=== PATIENT | male | born 1950 | race Caucasian/White ===

== ENCOUNTER 2024-04-17 14:29 | Observation (INO) ==
--- NOTE | 2024-04-17 14:54 | Emergency Department Note ---
History of Present Illness General Chief complaint: TIA Symptoms Stated complaint: LT ARM NUMBNESS Time Seen by Provider: 04/17/24 14:36 Source: patient, RN notes reviewed and old records reviewed (Old medical records were attempted to be reviewed but there are no old records at this hospital. Nurse's notes were reviewed and I agree with.) Mode of arrival: ambulatory Limitations: no limitations History of Present Illness This patient is 73-year-old healthy male who comes in after having episode where his left arm got weak and floppy as he describes that he could not fist he said this happened about an hour prior to arrival and lasted 10 or 15 minutes. He feels fine now during this episode he had no other symptoms no weakness in the face or legs no change in vision no difficulty speaking or swallowing. He also has an episode on Thursday at 3:00 in the morning where his left hand went numb and lasted about 10 minutes he recovered and has been fine until today. He is asymptomatic at present. Denies any fall or trauma. No neck pain or stiffness no fall or trauma no headache or head injury. Denies change in vision . no chest pain , shortness of breath or palpitations .he is on no blood thinners and takes cholesterol meds but no other regular meds. Denies abdominal pain. No back pain. Home Medications Medication Instructions Recorded Confirmed Type atorvastatin 20 mg tablet 20 mg PO DAILY 04/17/24 04/17/24 History Allergies Allergy/AdvReac Type Severity Reaction Status Date / Time [id number] Allergy Unknown Uncoded 01/19/08 07:55 Past Med/Surg History Problem List (Updated 04/17/24 @ 18:03 by Lawrence Archibald MD) Hypercholesterolemia (Acute) Brain TIA (Acute) Left arm numbness (Acute) Stroke (Acute) Social History Smoking Status: Former smoker Preferred Language: Persian Feels Safe at Home: Yes Immunizations: Past medical historydenies hypertension denies diabetes he is on no blood thinners. Has hypercholesteremia but no other medical problems . no history of stroke or vascular disease Social history lives locally with his . Does not smoke Review of Systems A total of 10 systems reviewed and were otherwise negative Physical Exam Vital Signs Vital Signs - 24 hr 04/17/24 14:31 04/17/24 14:46 04/17/24 14:48 Temperature 36.6 C Temperature Source Temporal Artery Scan Pulse Rate 55 L 50 L Pulse Rate from SpO2 Sensor 51 L Pulse Rhythm Regular Pulse Strength Normal Respiratory Rate 20 20 Respiratory Effort / Characteristics Non-Labored Spontaneous Respiratory Depth Normal Respiratory Pattern Regular Blood Pressure 170/80 H 166/90 H Blood Pressure Mean 110 134 Blood Pressure Position Sitting Pulse Oximetry 97 98 Oxygen Delivery Method Room Air Room Air Sepsis Recent Fever Within 48 Hours No Sepsis New/Unexplained Change in Mental Status No Sepsis Action Taken by Nursing No Action Required 04/17/24 14:54 04/17/24 15:00 04/17/24 15:31 Temperature Temperature Source Pulse Rate 49 L 57 L Pulse Rate from SpO2 Sensor 49 L Pulse Rhythm Pulse Strength Respiratory Rate 16 20 Respiratory Effort / Characteristics Respiratory Depth Respiratory Pattern Blood Pressure 117/79 163/103 H Blood Pressure Mean 90 121 Blood Pressure Position Pulse Oximetry 96 Oxygen Delivery Method Room Air Sepsis Recent Fever Within 48 Hours Sepsis New/Unexplained Change in Mental Status Sepsis Action Taken by Nursing 04/17/24 16:00 04/17/24 16:11 04/17/24 16:30 Temperature Temperature Source Pulse Rate 50 L 47 L 52 L Pulse Rate from SpO2 Sensor Pulse Rhythm Pulse Strength Respiratory Rate 16 16 Respiratory Effort / Characteristics Respiratory Depth Respiratory Pattern Blood Pressure 159/82 H 156/91 H Blood Pressure Mean 110 127 Blood Pressure Position Pulse Oximetry 97 100 Oxygen Delivery Method Sepsis Recent Fever Within 48 Hours Sepsis New/Unexplained Change in Mental Status Sepsis Action Taken by Nursing 04/17/24 17:01 Temperature Temperature Source Pulse Rate Pulse Rate from SpO2 Sensor 60 Pulse Rhythm Pulse Strength Respiratory Rate 20 Respiratory Effort / Characteristics Respiratory Depth Respiratory Pattern Blood Pressure 167/109 H Blood Pressure Mean 123 Blood Pressure Position Pulse Oximetry 99 Oxygen Delivery Method Sepsis Recent Fever Within 48 Hours Sepsis New/Unexplained Change in Mental Status Sepsis Action Taken by Nursing General: Well developed well nourished older male who appears not ill and in no acute distress, breathing comfortably on room air. Normal speech. Answers all questions appropriately. Alert and orient x 3. HEENT: Normal cephalic atraumatic. Pupils are equal round and reactive to light. Extraocular movements are intact. Oropharynx is pink with moist mucous membranes. No swelling of the mouth lips or tongue. Neck: Supple with a midline trachea. No meningeal signs or stiffness, no JVD or bruits. No Stridor. Chest: Clear to auscultation bilaterally. No wheezes or rhonchi. No increased work of breathing. Heart: Regular rate and rhythm without murmurs or gallops. Abdomen: Soft nontender, nondistended without rebound guarding or rigidity. Extremities: No cyanosis clubbing or edema. No calf tenderness or assymetry Spine/Back. Non tender to palpation. No CVA tenderness Skin: Good turgor without rashes. Neurologic exam: Cranial nerves two through 12 are intact. Motor and sensation are intact and symmetrical throughout. Good receiving and processing supervisor strength in the left hand. No pronator drift. Finger-nose is intact. Course Administered Medications Lorazepam (Lorazepam 2 Mg/1 Ml Vial) 1 mg IV NOW PRN PRN Reason: prior to MRI Stop: 05/17/24 16:35 Last Admin: 04/17/24 17:05 Dose: 1 mg Documented By: SLD Discontinued Medications Aspirin (Aspirin 81 Mg Chew) 324 mg PO NOW STA Stop: 04/17/24 16:16 Last Admin: 04/17/24 16:27 Dose: 324 mg Documented By: MMN Ioversol (Optiray 320 125ml) 117 ml IV ONCE ONE Stop: 04/17/24 15:15 Last Admin: 04/17/24 15:14 Dose: 117 ml Documented By: EDK Medical Decision Making Differential Diagnosis TIA, CVA, intracranial process, electrolyte or metabolic abnormality, infection Medical Records Attestation: I reviewed the patient's medical records. Home Medications Current Medication List: was personally reviewed by me Laboratory Data Attestation: I reviewed the patient's lab results. 04/17/24 14:43 04/17/24 14:43 Lab Results 04/17/24 04/17/24 04/17/24 Range/Units 14:41 14:43 14:50 WBC 9.48 (4.8-10.8) K/ul RBC 5.26 (4.70-6.10) M/uL Hgb 15.5 (14.0-18.0) g/dl POC Hgb 16.3 (14.0-18.0) g/dl Hct 44.8 (42.0-52.0) % POC Hct 48 (42-52) % MCV 85.2 (80.0-100.0) fL MCH 29.5 (25.0-34.0) pg MCHC 34.6 (32.0-36.0) g/dL RDW Std Deviation 42.5 (36.4-46.3) fL RDW Coeff of Car 13.5 (11.5-14.5) % Plt Count 251 (130-400) K/uL MPV 11.0 (9.4-12.4) fL Immature Gran % (Auto) 0.3 % Neut % (Auto) 65.6 % Lymph % (Auto) 23.3 % [place] % (Auto) 8.4 % Eos % (Auto) 1.3 % Baso % (Auto) 1.1 % Neut # (Auto) 6.22 (1.40-6.50) K/uL Lymph # (Auto) 2.21 (1.20-3.40) K/uL [place] # (Auto) 0.80 H (0.11-0.59) K/uL Eos # (Auto) 0.12 (0.00-0.50) K/uL Baso # (Auto) 0.10 (0.00-0.20) K/uL Immature Gran # (Auto) 0.03 (0.01-0.20) K/uL PT 11.0 (9.0-12.0) Seconds INR 1.0 (0.9-1.1) APTT 27 (21-31) Seconds PTT Ratio 1.0 POC Sodium 141 (135-144) mmol/L Sodium 138 (136-145) mmol/L POC Potassium 3.5 (3.3-5.0) mmol/L Potassium 3.5 (3.5-5.1) mmol/L POC Chloride 102 (101-112) mmol/L Chloride 103 (98-107) mmol/L Carbon Dioxide 27 (21-32) mmol/L POC Total CO2 24 (24-31) mmol/L Anion Gap 8 (3-11) POC Anion Gap 20.0 (16-25) mmol/L POC BUN 19 H (7-18) mg/dl BUN 18 (6-23) mg/dl Creatinine 1.07 (0.6-1.4) mg/dl POC Creatinine 1.1 (0.6-1.3) mg/dl Est Cr Clr Drug Dosing 63.3 ml/min eGFR 74.19 BUN/Creatinine Ratio 16.8 (10-20) Glucose 104 H (70-99(Fasting)) mg/dl POC Glucose 98 (70-99) mg/dl POC Glucose (other) 107 H (70-99) mg/dl Calcium 9.9 (8.6-10.3) mg/dl POC Ioniz Calcium [place] 1.23 (1.12-1.32) mmol/l Magnesium 2.0 (1.7-2.4) mg/dl Total Bilirubin 0.8 (0.2-1.0) mg/dl AST 19 (13-39) U/L ALT 25 (7-52) U/L Alkaline Phosphatase 54 (34-104) U/L Troponin I High Sens 3.5 (0-20) pg/ml Total Protein 7.8 (6.0-8.3) gm/dl Albumin 5.1 H (3.4-5.0) gm/dl Globulin 2.7 (2.5-4.0) gm/dl Albumin/Globulin Ratio 1.9 (0.9-2) Imaging Data Attestation: I personally reviewed and interpreted this imaging study as follows: My Impression: Head CTno acute hemorrhage or mass effect seen Radiologist's Impression: Head CT 04/17/24 14:49 CT OF THE HEAD WITHOUT CONTRAST CLINICAL HISTORY: neuro deficit, acute stroke suspected. Sudden onset left arm weakness. COMPARISON STUDY: No previous studies for comparison. TECHNIQUE: Helical axial images of the head were obtained without IV contrast. Automated exposure control was utilized for the study. A dose lowering technique was utilized adhering to the principles of ALARA. FINDINGS: No acute intracranial hemorrhage, midline shift or mass effect is present. The ventricular system is unremarkable. The basal cisterns are patent. No extra-axial collections are present. There are no findings to suggest acute dural sinus thrombosis or acute territorial infarct. No significant calvarial abnormalities are present. Visualized portions of the sinuses and mastoid air cells are clear. IMPRESSION: No acute intracranial findings. ACT 112: Negative or not required by law. Electronically signed by: Khang Regan M.D. 04/17/2024 3:33 PM Head CTA 04/17/24 14:49 CTA ANGIOGRAPHY OF THE HEAD CLINICAL HISTORY: neuro deficit, acute stroke suspected. Left arm weakness. COMPARISON STUDY: No previous studies for comparison. TECHNIQUE: Helical axial images of the head were obtained following uneventful intravenous administration of 117 cc of Optiray. Sagittal and coronal reconstructions were viewed as well as maximal intensity projections on an independent 3-D workstation. Automated exposure control was utilized for the study. A dose lowering technique was utilized adhering to the principles of ALARA. FINDINGS: No acute intracranial hemorrhage, midline shift or mass effect is present. Brain volume is normal. Ventricular system is normal. Basal cisterns are patent. The bilateral M1, M2, A1 and A2 segments are patent. No large vessel occlusion is present. Posterior circulation is intact. There is persistence of the left posterior cerebral artery and a large right posterior communicating artery. Basilar artery is patent. There is no intracranial aneurysm or dissection. IMPRESSION: No large vessel occlusion. No intracranial aneurysm. ACT 112: Negative or not required by law. Electronically signed by: Khang Regan M.D. 04/17/2024 3:45 PM Neck CTA 04/17/24 14:49 CT ANGIOGRAPHY OF THE NECK WITH CONTRAST CLINICAL HISTORY: neuro deficit, acute stroke suspected COMPARISON STUDY: MRI of the cervical spine December 27, 2007. Technique: CT angiography of the carotid and vertebral arteries was obtained using Optiray and 3D reconstruction on an independent workstation. NASCET criteria was utilized. Automated exposure control was utilized for the study. A dose lowering technique was utilized adhering to the principles of ALARA. CT DOSE: 896.18 mGy.cm Findings: No cervical lymphadenopathy is identified. There are no cervical spine fractures. No consolidation is identified within visual portions of the lung apices. The bilateral common carotid arteries are patent. There is calcified and noncalcified plaque within the proximal bilateral internal carotid arteries with resultant stenosis. The proximal right internal carotid artery measures 1.7 mm in caliber. The distal right internal carotid artery measures 5.4 mm in caliber. The proximal left internal carotid artery measures 2 mm in caliber. The more distal left cervical internal carotid artery measures 5.6 mm. [Artery is dominant and patent. Right vertebral artery is somewhat diminutive, likely on a congenital basis. No aneurysm or dissection within the neck. IMPRESSION: 1. Noncalcified and calcified atherosclerotic plaque within the proximal bilateral internal carotid arteries which results in approximate 70% stenosis of the proximal bilateral internal carotid arteries. 2. Dominant, patent left vertebral artery. Somewhat diminutive right vertebral artery, likely on a congenital basis. ACT 112: Negative or not required by law. Electronically signed by: Khang Regan M.D. 04/17/2024 3:41 PM Brain MRI 04/17/24 16:36 MRI OF THE BRAIN WITHOUT CONTRAST CLINICAL HISTORY: Left upper extremity weakness and numbness. Evaluate for stroke. COMPARISON STUDY: Head CT and CTA of the head performed earlier today. TECHNIQUE: Utilizing a 1.5 Dolores magnet and dedicated coil, multiplanar, multiecho imaging of the brain was performed without IV contrast. FINDINGS: There are a few small foci of restricted diffusion within the posterior right frontal lobe and anterior right parietal lobe. The foci of restricted diffusion measure up to 6 mm. Mild associated T2 hyperintensity is noted. The T2 hyperintense foci measure up to 1.3 cm. There is no mass effect or evidence for hemorrhagic conversion. In addition, there is a small T2 hyperintense focus within the right occipital lobe on coronal FLAIR image . This is mildly hyperintense on the diffusion-weighted sequence. This may be slightly hypointense on the ADC map Ventricular system is normal. Basal cisterns are patent. There are no extra-axial collections. Flow-voids for the major intracranial vessels are present. No intracranial masses are identified on this unenhanced exam. IMPRESSION: 1. A few small infarcts within the posterior right frontal and anterior right parietal lobes which are likely acute. Mild associated T2 hyperintensity. No mass effect or evidence for hemorrhagic conversion. 2. Small T2 hyperintense focus with mild restricted diffusion within the right occipital lobe. This favors an additional acute to subacute infarct. 3. No intracranial hemorrhage. No mass effect. ACT 112: Negative or not required by law. Electronically signed by: Khang Regan M.D. 04/17/2024 5:48 PM ECG Data Attestation: I personally reviewed and interpreted this ECG as follows: Indication: + weakness Rate (beats per minute): 47 Rhythm: + sinus bradycardia ECG Intervals/blocks: + Normal QRS, + Normal QT and + Normal CT ECG [place]: + Normal ECG ST segments: + Normal ST segments ECG Findings: + PACs and + PVCs Comparison ECG Date: no prior available MDM Narrative This patient comes in after having weakness of his left arm it is now 100% resolved and he is asymptomatic I am concerned that he had symptoms in his arm earlier in the week as well. I am concerned about stuttering TIAs or neurologic process. At this point with the symptoms resolved he does not appear to have had a stroke. I did do a full stroke workup on him his blood sugar was checked was 108 and therefore not the culprit. IV access established EKG was obtained and he was placed on a quality assurance monitor chassis. His EKG shows no ischemic changes or ectopy. His blood work was unremarkable he has remained stable. CAT scan of the head and CT angiography of the head were negative. CT angiography neck however showed 70% carotid blockage bilaterally I am concerned with his recurrent symptoms that this may be the culprit for his TIA symptoms. He was given aspirin 324 mg chewable and will likely need further antiplatelet/anticoagulation I discussed the case at length with Dr. Huang who is on-call for [email or web address]. She is also ordered an MRI and started him on Plavix. MRI does show that he has had some strokes. the patient is going to be admitted for further treatment and workup. Continuous cardiac monitoring call orders placed in EMR for continuous cardiac monitoring: Upon my evaluation patient noted to be sinus bradycardia with a rate of 55 Impression & Plan Stroke, Left arm numbness, Brain TIA, Hypercholesterolemia Discharge Plan Visit Data Chief Complaint: TIA Symptoms Stated Complaint: LT ARM NUMBNESS ED Provider: Lawrence Archibald Discharge Problem: Stroke, Left arm numbness, Brain TIA, Hypercholesterolemia Discharge Instructions Interventions: ED Discharge Assessment Last Done: 04/17/24 17:26 Forms Stand Alone Forms: My [employer] Prescriptions Prescriptions: No Action atorvastatin 20 mg tablet 20 mg PO DAILY Referrals Referrals: PCP,NO [Physician] - Discharge Problem: Stroke Qualifiers: CVA mechanism: unspecified Qualified Code(s): I63.9 - Cerebral infarction, unspecified
[2024-04-17 15:07] LABS: iSTAT Creatinine 1.1 mg/dl (0.6-1.3); iSTAT Hemoglobin 16.3 g/dl (14.0-18.0); iSTAT Ionized Calcium 1.23 mmol/l (1.12-1.32); iSTAT Potassium 3.5 mmol/L (3.3-5.0)
[2024-04-17 15:09] LABS: Basophils % (auto) 1.1 %; Eosinophils # (auto) 0.12 K/uL (0.00-0.50); Eosinophils % (auto) 1.3 %; Hematocrit (blood only) 44.8 % (42.0-52.0); Hemoglobin 15.5 g/dl (14.0-18.0); Immature Granulocytes # (auto) 0.03 K/uL (0.01-0.20); Immature Granulocytes % (auto) 0.3 %; Lymphocytes # (auto) 2.21 K/uL (1.20-3.40); Lymphocytes % (auto) 23.3 %; Mean Corpuscular Hemoglobin 29.5 pg (25.0-34.0); Mean Corpuscular Hgb Conc 34.6 g/dL (32.0-36.0); Mean Corpuscular Volume 85.2 fL (80.0-100.0); Monocytes % (auto) 8.4 %; Neutrophils # (auto) 6.22 K/uL (1.40-6.50); Neutrophils % (auto) 65.6 %; Platelet Count 251 K/uL (130-400); RDW Coefficient of Variation 13.5 % (11.5-14.5); RDW Standard Deviation 42.5 fL (36.4-46.3); Red Blood Count 5.26 M/uL (4.70-6.10); White Blood Count 9.48 K/ul (4.8-10.8)
[2024-04-17] MEDS: OPTIRAY 320 125ml IV ONE (15:14)
[2024-04-17 15:16] LABS: Albumin Globulin Ratio 1.9 (0.9-2); Albumin Level 5.1 gm/dl (3.4-5.0); BUN Creatinine Ratio 16.8 (10-20); Bilirubin,Total 0.8 mg/dl (0.2-1.0); Calcium 9.9 mg/dl (8.6-10.3); Creatinine Clr Calc Pharmacy 63.3 ml/min; Globulin 2.7 gm/dl (2.5-4.0); Potassium 3.5 mmol/L (3.5-5.1); Total Protein 7.8 gm/dl (6.0-8.3)
[2024-04-17 15:23] LABS: Troponin I High Sensitivity 3.5 pg/ml (0-20)
[2024-04-17 15:28] LABS: Partial Thromboplastin Time 27 Seconds (21-31)
--- NOTE | 2024-04-17 15:34 | CT Scan Report ---
CT OF THE HEAD WITHOUT CONTRAST CLINICAL HISTORY: neuro deficit, acute stroke suspected. Sudden onset left arm weakness. COMPARISON STUDY: No previous studies for comparison. TECHNIQUE: Helical axial images of the head were obtained without IV contrast. Automated exposure con trol was utilized for the study. A dose lowering technique was utilized adhering to the principles o f ALARA. FINDINGS: No acute intracranial hemorrhage, midline shift or mass effect is present. The ventricular system is unremarkable. The basal cisterns are patent. No extra-axial collections are present. There are no findings to suggest acute dural sinus thrombosis or acute territorial infarct. No significant calvarial abnormalities are present. Visualized portions of the sinuses and mastoid air cells are asha ar. IMPRESSION: No acute intracranial findings. ACT 112: Negative or not required by law. Electronically signed by: Khang Regan M.D. 04/17/2024 3:33 PM
--- NOTE | 2024-04-17 15:43 | CT Scan Report ---
CT ANGIOGRAPHY OF THE NECK WITH CONTRAST CLINICAL HISTORY: neuro deficit, acute stroke suspected COMPARISON STUDY: MRI of the cervical spine December 27, 2007. Technique: CT angiography of the carotid and vertebral arteries was obtained using Optiray and 3D rec onstruction on an independent workstation. NASCET criteria was utilized. Automated exposure control was utilized for the study. A dose lowering technique was utilized adhering to the principles of ALA RA. CT DOSE: 896.18 mGy.cm Findings: No cervical lymphadenopathy is identified. There are no cervical spine fractures. No consol idation is identified within visual portions of the lung apices. The bilateral common carotid arterie s are patent. There is calcified and noncalcified plaque within the proximal bilateral internal carot id arteries with resultant stenosis. The proximal right internal carotid artery measures 1.7 mm in ca liber. The distal right internal carotid artery measures 5.4 mm in caliber. The proximal left interna l carotid artery measures 2 mm in caliber. The more distal left cervical internal carotid artery dano ures 5.6 mm. [Artery is dominant and patent. Right vertebral artery is somewhat diminutive, likely on a congenital basis. No aneurysm or dissection within the neck. IMPRESSION: 1. Noncalcified and calcified atherosclerotic plaque within the proximal bilateral internal carotid a rteries which results in approximate 70% stenosis of the proximal bilateral internal carotid arteries . 2. Dominant, patent left vertebral artery. Somewhat diminutive right vertebral artery, likely on a co ngenital basis. ACT 112: Negative or not required by law. Electronically signed by: Khang Regan M.D. 04/17/2024 3:41 PM
--- NOTE | 2024-04-17 15:46 | CT Scan Report ---
CTA ANGIOGRAPHY OF THE HEAD CLINICAL HISTORY: neuro deficit, acute stroke suspected. Left arm weakness. COMPARISON STUDY: No previous studies for comparison. TECHNIQUE: Helical axial images of the head were obtained following uneventful intravenous administr ation of 117 cc of Optiray. Sagittal and coronal reconstructions were viewed as well as maximal inten sity projections on an independent 3-D workstation. Automated exposure control was utilized for the study. A dose lowering technique was utilized adhering to the principles of ALARA. FINDINGS: No acute intracranial hemorrhage, midline shift or mass effect is present. Brain volume is normal. Ventricular system is normal. Basal cisterns are patent. The bilateral M1, M2, A1 and A2 segm ents are patent. No large vessel occlusion is present. Posterior circulation is intact. There is feta l persistence of the left posterior cerebral artery and a large right posterior communicating artery. Basilar artery is patent. There is no intracranial aneurysm or dissection. IMPRESSION: No large vessel occlusion. No intracranial aneurysm. ACT 112: Negative or not required by law. Electronically signed by: Khang Regan M.D. 04/17/2024 3:45 PM
[2024-04-17] MEDS: ASPIRIN 81 MG CHEW PO STA (16:27)
--- NOTE | 2024-04-17 16:50 | History & Physical Report ---
Date of Service April 17, 2024 Assessment & Plan (1) Stroke: (2) Left arm numbness: (3) Hypercholesterolemia: Plan Mr. Hoang is a 73 year old gentleman with past medical history remarkable for HLD and cervical myelopathy who presented to [facility] ED due to 2 episodes of left hand sensory loss. Patient admitted for further management of stroke. Patient's symptoms resolved prior to presentation therefore no stroke alert nor thrombolytic therapies considered. #Multiple right frontal/parietal/occiptal infarcts #Bilateral carotid stenosis, 70% MRI: 1. A few small infarcts within the posterior right frontal and anterior right parietal lobes which are likely acute. Mild associated T2 hyperintensity. No mass effect or evidence for hemorrhagic conversion. 2. Small T2 hyperintense focus with mild restricted diffusion within the right occipital lobe. This favors an additional acute to subacute infarct. 3. No intracranial hemorrhage. No mass effect. Given ASA in ED -Start Plavix daily -Continue ASA 81mg -Admit to med/tele Continue [facility] stroke scale and neuro checks Neuro consult for final recommendations ECHO ordered Vascular consulted for timing of possible carotid intervention Continue statin Lipid panel in am--adjust statin as warranted A1C in am PT/OT #HLD continue home statin #Sinus bradycardia noted to have chronotropic response with HR up into 60s during anxious moment on exam EKG in am Monitor on tele DVT lovenox in am Dispo likely home Admission and Anticipated Discharge Date Admission Date: Time spent evaluating patient, direct bedside care, chart review, placing orders, interpretation of diagnostic studies, discussion with consultants, patient, and family members, as well as other required patient management activities is 75 minutes. History of Present Illness Chief Complaint: LUE sensory loss Primary Care Provider: Dannielle Summers Mr. Hoang is a 73 year old gentleman with past medical history remarkable for HLD and cervical myelopathy who presented to [facility] ED due to 2 episodes of left hand sensory loss. Patient states that he woke from his sleep Thursday night with the inability to feel his hand. He notes that he would make a fist and move his arm, but could n ot "feel" what he was doing. This episode happened once more today, lasting 5-10 minutes, and more pronounced marked by a "floopy" like sensation. Patient denies headache, vision changes, or other acute concerns. Patient reports being in usual state of health prior to admission. He however notes anxiety about situation. Patient denies dizziness or presyncopal like symptoms with ambulation. Patient does not smoke, last tobacco use 20-30 years prior. Denies alcohol use, stating last drink was about 3-4 months prior to presentation. In the ED, vitals were notable for BP of 150s-160s, HR of 40-50s , and O2 sat of high 90s on RA Imaging revealed CTA with bilateral 70% stenosis, MRI with subacute/acute multiple infarcts in right occiptal/right frontal/right partieal lobes ED interventions: asa Patient to be admitted to med/tele for further evaluation and management of stroke Allergies Allergy/AdvReac Type Severity Reaction Status Date / Time [id number] Allergy Unknown Uncoded 01/19/08 07:55 Home Medications Medication Instructions Recorded Confirmed Type atorvastatin 20 mg tablet 20 mg PO DAILY 04/17/24 04/17/24 History Past Med/Surg History Problem List (Updated 04/17/24 @ 18:03 by Lawrence Archibald MD) Hypercholesterolemia (Acute) Brain TIA (Acute) Left arm numbness (Acute) Stroke (Acute) Social History Smoking Status: Former smoker Preferred Language: Kyrgyz Feels Safe at Home: Yes Review of Systems Review of Systems: Constitutional: (-) fever/chills, (-) recent loss of weight, (-) appetite changes, (-) night sweats. Head: (-) headache, (-) dizziness. Eye: (-) blurring of vision, (-) double vision, (-) redness. Ear: (-) hearing loss, (-) discharge, (-) vertigo Nose: (-) discharge, (-) bleeding, (-) congestion, (-) post nasal drip. Throat: (-) sore throat, (-) hoarseness of voice, (-) odynophagia. Cardiovascular: (-) chest pain, (-) palpitations, (-) syncope, (-) orthopnea Respiratory: (-) shortness of breath, (-) cough, (-) wheezing, (-) hemoptysis. Neuro: (-) weakness in extremities, (++) numbness, (-) tingling, (-) tremor. Gastrointestinal: (-) belly pain, (-) belly distension, (-) nausea, (-) vomiting, (-) diarrhea, (-) constipation hematochezia, (-) bowel incontinence Genitourinary: (-) hematuria, (-) dysuria, (-) polyuria, (-) hesitancy, (-) frequency, (-) urinary incontinence. Musculoskeletal: (-) myalgia, (-) arthralgia. Skin: (-) rashes. Endocrine: (-) heat/cold intolerance. Psychiatry: (-) depression, (-) hallucination. Physical Exam Physical Exam: GENERAL APPEARANCE: AxOx4, generally well-appearing gentleman, however notably anxious HEENT: NC, AT. MMM. EOMI, clear conjunctiva, oropharynx clear. NECK: Supple without lymphadenopathy. No stiffness or restricted ROM. HEART: Normal rate and regular rhythm, normal S1/S1, no m/r/g LUNGS: CTAB, moving air well. No crackles or wheezes are heard. ABDOMEN: Soft, nontender, nondistended with good bowel sounds heard. BACK: No CVAT, no obvious deformity. EXTREMITIES: Without cyanosis, clubbing or edema. NEUROLOGICAL: Grossly nonfocal. Alert and oriented, moving all 4 extremities. CN II-XII intact. Skin: Warm and dry without any rash. Results & Data Results & Data Vital Signs (Past 12 Hours) Vital Signs Temp Pulse Resp BP Pulse Ox O2 Del Method 04/17/24 16:11 47 L 04/17/24 15:00 117/79 04/17/24 14:54 49 L 16 96 Room Air 04/17/24 14:48 50 L 20 98 Room Air 04/17/24 14:46 166/90 H 04/17/24 14:31 36.6 C 55 L 20 170/80 H 97 Room Air Laboratory Results Short CBC 04/17/24 Range/Units 14:43 WBC 9.48 (4.8-10.8) K/ul Hgb 15.5 (14.0-18.0) g/dl Hct 44.8 (42.0-52.0) % Plt Count 251 (130-400) K/uL BMP 04/17/24 14:43 Sodium 138 Potassium 3.5 Chloride 103 Carbon Dioxide 27 BUN 18 Creatinine 1.07 Glucose 104 H Calcium 9.9 Liver Function 04/17/24 Range/Units 14:43 Total Bilirubin 0.8 (0.2-1.0) mg/dl AST 19 (13-39) U/L ALT 25 (7-52) U/L Alkaline Phosphatase 54 (34-104) U/L Albumin 5.1 H (3.4-5.0) gm/dl Diagnostic Findings Head CT 04/17/24 14:49 CT OF THE HEAD WITHOUT CONTRAST CLINICAL HISTORY: neuro deficit, acute stroke suspected. Sudden onset left arm weakness. COMPARISON STUDY: No previous studies for comparison. TECHNIQUE: Helical axial images of the head were obtained without IV contrast. Automated exposure control was utilized for the study. A dose lowering technique was utilized adhering to the principles of ALARA. FINDINGS: No acute intracranial hemorrhage, midline shift or mass effect is present. The ventricular system is unremarkable. The basal cisterns are patent. No extra-axial collections are present. There are no findings to suggest acute dural sinus thrombosis or acute territorial infarct. No significant calvarial abnormalities are present. Visualized portions of the sinuses and mastoid air cells are clear. IMPRESSION: No acute intracranial findings. ACT 112: Negative or not required by law. Electronically signed by: Khang Regan M.D. 04/17/2024 3:33 PM Head CTA 04/17/24 14:49 CTA ANGIOGRAPHY OF THE HEAD CLINICAL HISTORY: neuro deficit, acute stroke suspected. Left arm weakness. COMPARISON STUDY: No previous studies for comparison. TECHNIQUE: Helical axial images of the head were obtained following uneventful intravenous administration of 117 cc of Optiray. Sagittal and coronal reconstructions were viewed as well as maximal intensity projections on an independent 3-D workstation. Automated exposure control was utilized for the study. A dose lowering technique was utilized adhering to the principles of ALARA. FINDINGS: No acute intracranial hemorrhage, midline shift or mass effect is present. Brain volume is normal. Ventricular system is normal. Basal cisterns are patent. The bilateral M1, M2, A1 and A2 segments are patent. No large vessel occlusion is present. Posterior circulation is intact. There is persistence of the left posterior cerebral artery and a large right posterior communicating artery. Basilar artery is patent. There is no intracranial aneurysm or dissection. IMPRESSION: No large vessel occlusion. No intracranial aneurysm. ACT 112: Negative or not required by law. Electronically signed by: Khang Regan M.D. 04/17/2024 3:45 PM Neck CTA 04/17/24 14:49 CT ANGIOGRAPHY OF THE NECK WITH CONTRAST CLINICAL HISTORY: neuro deficit, acute stroke suspected COMPARISON STUDY: MRI of the cervical spine December 27, 2007. Technique: CT angiography of the carotid and vertebral arteries was obtained using Optiray and 3D reconstruction on an independent workstation. NASCET criteria was utilized. Automated exposure control was utilized for the study. A dose lowering technique was utilized adhering to the principles of ALARA. CT DOSE: 896.18 mGy.cm Findings: No cervical lymphadenopathy is identified. There are no cervical spine fractures. No consolidation is identified within visual portions of the lung apices. The bilateral common carotid arteries are patent. There is calcified and noncalcified plaque within the proximal bilateral internal carotid arteries with resultant stenosis. The proximal right internal carotid artery measures 1.7 mm in caliber. The distal right internal carotid artery measures 5.4 mm in caliber. The proximal left internal carotid artery measures 2 mm in caliber. The more distal left cervical internal carotid artery measures 5.6 mm. [Artery is dominant and patent. Right vertebral artery is somewhat diminutive, likely on a congenital basis. No aneurysm or dissection within the neck. IMPRESSION: 1. Noncalcified and calcified atherosclerotic plaque within the proximal bilateral internal carotid arteries which results in approximate 70% stenosis of the proximal bilateral internal carotid arteries. 2. Dominant, patent left vertebral artery. Somewhat diminutive right vertebral artery, likely on a congenital basis. ACT 112: Negative or not required by law. Electronically signed by: Khang Regan M.D. 04/17/2024 3:41 PM Brain MRI 04/17/24 16:36 MRI OF THE BRAIN WITHOUT CONTRAST CLINICAL HISTORY: Left upper extremity weakness and numbness. Evaluate for stroke. COMPARISON STUDY: Head CT and CTA of the head performed earlier today. TECHNIQUE: Utilizing a 1.5 Dolores magnet and dedicated coil, multiplanar, multiecho imaging of the brain was performed without IV contrast. FINDINGS: There are a few small foci of restricted diffusion within the posteri or right frontal lobe and anterior right parietal lobe. The foci of restricted diffusion measure up to 6 mm. Mild associated T2 hyperintensity is noted. The T2 hyperintense foci measure up to 1.3 cm. There is no mass effect or evidence for hemorrhagic conversion. In addition, there is a small T2 hyperintense focus within the right occipital lobe on coronal FLAIR image 24 of 28. This is mildly hyperintense on the diffusion-weighted sequence. This may be slightly hypointense on the ADC map Ventricular system is normal. Basal cisterns are patent. There are no extra-axial collections. Flow-voids for the major intracranial vessels are present. No intracranial masses are identified on this unenhanced exam. IMPRESSION: 1. A few small infarcts within the posterior right frontal and anterior right parietal lobes which are likely acute. Mild associated T2 hyperintensity. No mass effect or evidence for hemorrhagic conversion. 2. Small T2 hyperintense focus with mild restricted diffusion within the right occipital lobe. This favors an additional acute to subacute infarct. 3. No intracranial hemorrhage. No mass effect. ACT 112: Negative or not required by law. Electronically signed by: Khang Regan M.D. 04/17/2024 5:48 PM Medications Administered Home Medications Medication Instructions Recorded Confirmed Last Taken atorvastatin 20 mg tablet 20 mg PO DAILY 04/17/24 04/17/24 Unknown Active Medications Generic Name Dose Route Start Last Admin Trade Name Freq PRN Reason Stop Dose Admin Lorazepam 1 mg 04/17/24 16:36 04/17/24 17:05 Lorazepam 2 Mg/1 Ml Vial IV 05/17/24 16:35 1 mg NOW PRN Administration prior to MRI (1) Stroke CVA mechanism: unspecified Qualified Code(s): I63.9 - Cerebral infarction, unspecified
[2024-04-17] MEDS: LORazepam 2 MG/1 ML VIAL IV PRN (17:05)
--- NOTE | 2024-04-17 17:50 | Magnetic Resonance Report ---
MRI OF THE BRAIN WITHOUT CONTRAST CLINICAL HISTORY: Left upper extremity weakness and numbness. Evaluate for stroke. COMPARISON STUDY: Head CT and CTA of the head performed earlier today. TECHNIQUE: Utilizing a 1.5 Dolores magnet and dedicated coil, multiplanar, multiecho imaging of the bra in was performed without IV contrast. FINDINGS: There are a few small foci of restricted diffusion within the posterior right frontal lobe and anterior right parietal lobe. The foci of restricted diffusion measure up to 6 mm. Mild associate d T2 hyperintensity is noted. The T2 hyperintense foci measure up to 1.3 cm. There is no mass effect or evidence for hemorrhagic conversion. In addition, there is a small T2 hyperintense focus within th e right occipital lobe on coronal FLAIR image . This is mildly hyperintense on the diffusion- weighted sequence. This may be slightly hypointense on the ADC map Ventricular system is normal. Basa l cisterns are patent. There are no extra-axial collections. Flow-voids for the major intracranial ve ssels are present. No intracranial masses are identified on this unenhanced exam. IMPRESSION: 1. A few small infarcts within the posterior right frontal and anterior right parietal lobes which ar e likely acute. Mild associated T2 hyperintensity. No mass effect or evidence for hemorrhagic convers ion. 2. Small T2 hyperintense focus with mild restricted diffusion within the right occipital lobe. This f avors an additional acute to subacute infarct. 3. No intracranial hemorrhage. No mass effect. ACT 112: Negative or not required by law. Electronically signed by: Khang Regan M.D. 04/17/2024 5:48 PM
[2024-04-17] MEDS ORDERED: PHARMACIST DISCHARGE MED REC CONSULT PRN (18:33)
[2024-04-17] MEDS: Patient's ALLERGY Info needs ENTERED STA (19:36)
[2024-04-17 20:21] LABS: Calcium 9.7 mg/dl (8.6-10.3); Creatinine Clr Calc Pharmacy 63.9 ml/min
[2024-04-17] MEDS: CLOPIDOGREL BISULFATE 75 MG TAB PO ONE (20:32)
[2024-04-18 06:37] LABS: Basophils # (auto) 0.09 K/uL (0.00-0.20); Eosinophils # (auto) 0.13 K/uL (0.00-0.50); Eosinophils % (auto) 1.5 %; Hematocrit (blood only) 40.2 % (42.0-52.0); Immature Granulocytes # (auto) 0.03 K/uL (0.01-0.20); Immature Granulocytes % (auto) 0.3 %; Lymphocytes # (auto) 1.99 K/uL (1.20-3.40); Lymphocytes % (auto) 22.6 %; Mean Corpuscular Hemoglobin 29.6 pg (25.0-34.0); Mean Corpuscular Hgb Conc 34.8 g/dL (32.0-36.0); Mean Platelet Volume 11.1 fL (9.4-12.4); Monocytes # (auto) 0.85 K/uL (0.11-0.59); Monocytes % (auto) 9.7 %; Neutrophils % (auto) 64.9 %; Platelet Count 230 K/uL (130-400); RDW Coefficient of Variation 13.6 % (11.5-14.5); Red Blood Count 4.73 M/uL (4.70-6.10); White Blood Count 8.79 K/ul (4.8-10.8)
[2024-04-18 07:00] LABS: BUN Creatinine Ratio 16.8 (10-20); Chol HDL Ratio 2.8 (0-5)
[2024-04-18 07:33] LABS: Estimated Average Glucose 114 mg/dl; Hemoglobin A1C 5.6 % (4.5-5.6)
[2024-04-18 07:46] VITALS: RESP 18
--- NOTE | 2024-04-18 09:33 | Consultation ---
Date of Consultation April 18, 2024 Assessment & Plan (1) Carotid stenosis, bilateral: Pt admitted with R hemispheric TIA. Pt with bilateral carotid stenosis, however, R ICA is symptomatic. All sx currently resolved. Pt imaging reviewed by Dr Cummins, who also saw the pt today. Recommends pt undergo surgical intervention to R ICA stenosis. Options of R CEA vs TCAR were discussed at length with pt. Pt elects to proceed with R TCAR. Pt will need to remain on DAPT and statin medication to undergo surgery. Would also order TTE pre operatively. Office will call pt to make arrangements. OK for d/c home from vascular standpoint after echo. History of Present Illness Reason for Consultation: R ICA stenosis Attending Physician: Jessi Huang MD History of Present Illness 73 yo m with hx of hyperlipidemia admitted with R hemispheric TIA, seen in consultation today for R ICA stenosis. Pt states he was picking up sandwiches for dinner and noted his L arm was numb and weak when he was getting back in the car. Sx slowly improved over approx 30 min, almost gone by the time he arrived at [facility]. States woke up with L hand numbness for about 15 minutes a few months ago as well. Denies any other associated sx, including amaurosis, facial droop, dysarthria, aphasia, confusion, LUNDBERG, dizziness, balance problems. Denies any hx of heart problems, but does state he was told he has a murmur in the past. CTA neck demonstrates R ICA stenosis of 70% with possible ulcerated plaque. L ICA with approx 70% stenosis as well. Allergies Allergy/AdvReac Type Severity Reaction Status Date / Time [id number] Allergy Unknown Uncoded 01/19/08 07:55 Home Medications Medication Instructions Recorded Confirmed Type atorvastatin 20 mg tablet 20 mg PO DAILY 04/17/24 04/17/24 History Patient History Social History Smoking Status: Never smoker Hx Alcohol Use: No Hx Substance Use: No Preferred Language: Romansh Communication Ability: Effective Manager Of Software Required: No Beliefs That Will Affect Care: None Current Living Situation: Spouse Other Information That Helps Us Care for You: No Feels Safe at Home: Yes Safety Concerns: Feels Safe At This Time Review of Systems Review of Systems: All systems reviewed & are unremarkable except as noted in HPI & below Physical Exam Constitutional: WD/WN, vitals as above healthy appearing, cooperative and comfortable; not in distress Neck: trachea midline Respiratory: normal respiratory effort, lungs clear to auscultation Cardiovascular: Rate/Rhythm: regular rate and regular rhythm Vessels: + carotid bruit, femoral pulses present, posterior tibial pulses present, dorsalis pedis pulses present and radial pulses present Extremities: normal capillary refill; no edema Gastrointestinal (Abdomen): Inspection/Auscultation: abdomen normal to inspection and normal bowel sounds Percussion/Palpation: abdomen soft; abdomen nontender Musculoskeletal: no cyanosis or clubbing, extremities motor strength 5/5 Skin: no rashes, warm and dry Neurologic: moves all extremities and awake; no focal motor deficits and not confused Psychiatric: A+Ox3, euthymic affect Results & Data Vital Signs (Past 12 Hours) Vital Signs Temp Pulse Pulse Resp BP Pulse Ox O2 Del Method 04/18/24 07:45 36.5 C 53 L 18 129/73 97 Room Air 04/18/24 03:32 36.6 C 52 L 16 116/73 96 Room Air 04/18/24 00:11 36.5 C 77 16 117/68 95 Room Air 04/17/24 21:47 54 L
[2024-04-18] MEDS: ENOXAPARIN INJ 40 MG/0.4 ML SYR SQ SCH (10:00)
[2024-04-18] MEDS: ASPIRIN 81 MG ECTAB PO SCH (10:00)
[2024-04-18] MEDS: ATORVASTATIN 20 MG TAB PO SCH (10:00)
--- NOTE | 2024-04-18 11:04 | Neurology Consultation ---
Date of Consultation April 18, 2024 Assessment & Plan (1) Carotid stenosis, bilateral: Kashmir Hoang is a 73 yo M presenting with symptomatic R ICA stenosis with appropriate plan for TCAR through vascular surgery. Agree with their management. He is otherwise welcome to follow-up with neurology in 4-6 weeks. Please contact us with any further questions. Telehealth Consultation Telehealth Information Telehealth Information: I performed this visit using a real-time telehealth connection between my location and the patients location ([facility]). After connecting through interactive tele-video, patient was identified by name and date of and/or wristband check.Patient (or authorized healthcare patient services representative) was informed that this was a telemedicine visit and it was being conducted confidentially over secure lines. My office door was closed and no one else was present in the room with me.Patient (or authorized healthcare patient services representative) provided consent to proceed with the visit, expressed an understanding of privacy and security of the telemedicine visit, and gave permission to have a hospital patient services representative in the room in order to assist with the visit and to conduct portions of the visit, as needed. I informed the patient (or authorized healthcare patient services representative) that I reviewed their record and presented the opportunity for them to ask any questions regarding the visit today. The patient agreed to participate. History of Present Illness Reason for Consultation: TIA Requesting Physician: Dr. Huang Attending Physician: Jessi Huang MD History of Present Illness Kashmir Hoang is a 73 yo M presenting with transient L hand weakness and clumsiness, now resolved. The patient denies any residual or recurrent symptoms. He feels well currently. Was seen by vascular surgery today with plan for DAPT and TCAR next week. No hx of stroke in the past. 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 Results & Data Vital Signs (Past 12 Hours) Vital Signs Temp Pulse Resp BP Pulse Ox O2 Del Method 04/18/24 07:45 36.5 C 53 L 18 129/73 97 Room Air 04/18/24 03:32 36.6 C 52 L 16 116/73 96 Room Air 04/18/24 00:11 36.5 C 77 16 117/68 95 Room Air Diagnostic Findings CTA - Bilateral ICA stenosis >70% MRI brain (04/17) - Small R borderzone infarcts
[2024-04-18 11:46] VITALS: BP 129/74; PULSE 79; TEMP 98.2; O2SAT 91
[2024-04-18] MEDS: CLOPIDOGREL BISULFATE 75 MG TAB PO SCH (11:57)
[2024-04-18] MEDS: PNEUMOCOCCAL VACCINE (PCV20) 20-VAL CONJ-DIP CRM/PF 0.5 ML SYR IM ONE (12:02)
--- NOTE | 2024-04-18 12:09 | Pharmacy Report ---
- Date of Service April 18, 2024 - Pharmacy CVA/TIA Medication Review Medications to Prevent Stroke handout has been added to the patients discharge packet. Antiplatelet(s) * Aspirin 81mg daily * Plavix 75mg daily Cholesterol * Atorvastatin 20mg daily * High intensity statin deferred due to LDL < 70 per hospitalist. DVT Prophylaxis * Enoxaparin SQ Therapeutic Anticoagulation * No history of Afib/Aflutter noted Type 2 Diabetes * Patient does not have T2DM.
--- NOTE | 2024-04-18 12:41 | Electrocardiogram Report ---
Test Reason : Blood Pressure : */* mmHG Vent. Rate : 47 BPM Atrial Rate : 47 BPM P-R Int : 182 ms QRS Dur : 88 ms QT Int : 430 ms P-R-T Axes : 33 5 20 degrees QTcB Int : 380 ms Sinus bradycardia Minimal voltage criteria for LVH, may be normal variant Borderline ECG No previous ECGs available Confirmed by Riki Malone ([id number]) on 04/18/2024 12:41:07 PM Referred By: REFERRED SELF Confirmed By: Riki Malone
--- NOTE | 2024-04-18 12:56 | Electrocardiogram Report ---
Test Reason : Blood Pressure : */* mmHG Vent. Rate : 52 BPM Atrial Rate : 52 BPM P-R Int : 176 ms QRS Dur : 90 ms QT Int : 422 ms P-R-T Axes : 39 6 29 degrees QTcB Int : 392 ms Sinus bradycardia Otherwise normal ECG When compared with ECG of 17-Apr-2024 14:47, (unconfirmed) No significant change was found Confirmed by Riki Malone ([id number]) on 04/18/2024 12:55:50 PM Referred By: REFERRED SELF Confirmed By: Riki Malone
[2024-04-18] MEDS ORDERED: STROKE PATIENT DISCHARGE STA (14:37)
--- NOTE | 2024-04-18 14:45 | Discharge Summary ---
Discharge Summary Date of Service April 18, 2024 Principal Dx & Hospital Course #1 = Principal Diagnosis (1) Stroke: (2) Brain TIA: (3) Hypercholesterolemia: Plan Mr. Hoang is a 73 year old gentleman with past medical history remarkable for HLD and cervical myelopathy who presented to [facility] ED due to 2 episodes of left hand sensory loss. Patient admitted for further management of stroke. Patient's symptoms resolved prior to presentation therefore no stroke alert nor thrombolytic therapies considered. Patient was noted to have multiple right hemispheric infarcts varying in chronicity suggestive of symptomatic right ica. Patient started and continued on DAPT. Vascular evaluated with plans for TCAR in next week. Neurology evaluated and agrees with plan. ECHO reviewed with normal function and no thrombus noted. #Multiple right frontal/parietal/occiptal infarcts #Bilateral carotid stenosis, 70% MRI: 1. A few small infarcts within the posterior right frontal and anterior right parietal lobes which are likely acute. Mild associated T2 hyperintensity. No mass effect or evidence for hemorrhagic conversion. 2. Small T2 hyperintense focus with mild restricted diffusion within the right occipital lobe. This favors an additional acute to subacute infarct. 3. No intracranial hemorrhage. No mass effect. Given ASA in ED -Continue ASA 81mg and plavix Continue NHSS stroke scale and neuro checks Neuro consult for final recommendations ECHO EF 55-60%, no thrombus Vascular consulted for timing of possible carotid intervention: likely in next week, coordinated with patient Continue statin Lipid panel in am--LDL < 70, continue atorvastatin 20mg A1C 5.6% PT/OT no needs #HLD continue home statin #Sinus bradycardia noted to have chronotropic response with HR up into 60s during anxious moment on exam EKG: sinus and stable asymptomatic, healthy life style, stable echo Notes For Next Care Provider Medication Changes From Visit Plavix 75 mg daily ASA 81 mg daily Admission HPI Per Admitting Provider Mr. Hoang is a 73 year old gentleman with past medical history remarkable for HLD and cervical myelopathy who presented to [facility] ED due to 2 episodes of left hand sensory loss. Patient states that he woke from his sleep Thursday night with the inability to feel his hand. He notes that he would make a fist and move his arm, but could not "feel" what he was doing. This episode happened once more today, lasting 5- 10 minutes, and more pronounced marked by a "floopy" like sensation. Patient denies headache, vision changes, or other acute concerns. Patient reports being in usual state of health prior to admission. He however notes anxiety about situation. Patient denies dizziness or presyncopal like symptoms with ambulation. Patient does not smoke, last tobacco use 20-30 years prior. Denies alcohol use, stating last drink was about 3-4 months prior to presentation. In the ED, vitals were notable for BP of 150s-160s, HR of 40-50s , and O2 sat of high 90s on RA Imaging revealed CTA with bilateral 70% stenosis, MRI with subacute/acute multiple infarcts in right occiptal/right frontal/right partieal lobes ED interventions: asa Patient to be admitted to med/tele for further evaluation and management of stroke Admission Exam Per Admitting Provider GENERAL APPEARANCE: AxOx4, generally well-appearing gentleman, however notably anxious HEENT: NC, AT. MMM. EOMI, clear conjunctiva, oropharynx clear. NECK: Supple without lymphadenopathy. No stiffness or restricted ROM. HEART: Normal rate and regular rhythm, normal S1/S1, no m/r/g LUNGS: CTAB, moving air well. No crackles or wheezes are heard. ABDOMEN: Soft, nontender, nondistended with good bowel sounds heard. BACK: No CVAT, no obvious deformity. EXTREMITIES: Without cyanosis, clubbing or edema. NEUROLOGICAL: Grossly nonfocal. Alert and oriented, moving all 4 extremities. CN II-XII intact. Skin: Warm and dry without any rash. Discharge Exam Constitutional WD/WN, vitals as above Respiratory normal respiratory effort, lungs clear to auscultation Cardiovascular RRR, no murmur, no edema Musculoskeletal no cyanosis or clubbing, extremities motor strength 5/5 Neurologic PERRL, EOMI, accommodation nl, no face palsy, no dysarthria Updated Medication List Medication Instructions Recorded Confirmed Type atorvastatin 20 mg tablet 20 mg PO DAILY 04/17/24 04/17/24 History Pharmacist Discharge Consult 1 ea Not Applicable UD PRN ##0 04/18/24 Rx [Pharmacist Discharge Med Rec Consult] aspirin 81 mg tablet,delayed 81 mg PO QAM #30 tabs 04/18/24 Rx release clopidogrel 75 mg tablet 75 mg PO QAM 30 days #30 tabs 04/18/24 Rx Hospital Stay Data Consultations 04/17/24 16:39 ED Decision to Admit Stat 04/17/24 18:33 Consult Neurology Routine 04/18/24 07:01 Consult Vascular Surgery Routine Diagnostic Imagining Performed 04/17/24 14:49 CT angio head w con Stat CT angio neck with con Stat CT head/brain wo con Stat 04/17/24 16:36 MRI Brain [MR brain wo con] Routine Pending Results Patient Have Any Pending Studies at Discharge: No Discharge Instructions Given to Patient (Per Discharging Provider) You were admitted for left arm numbness and found to have right hemispheric TIA. You have bilateral carotid stenosis, however given your symptoms you are planned to undergo a vascular procedure on the right side. You were started on Aspirin 81 mg daily and Plavix 75mg daily Please continue your atorvastatin Total Time Total Time Spent Total Time Spent (In Minutes): 45
--- OUTSIDE RECORDS SUMMARY | 2024-04-18 16:29 | External Medical Summary | Summary of Care ---
Author Name Unknown Organization [facility] Address [address] [facility] [place] [address] Phone [phone] Care Team Providers Care Hand Washer Name Role Phone Unavailable Primary Care Provider Unavailabl e Reason for Visit * Reason Onset Date Comments Appointment 01/06/2024 Needs to establi sh with a doctor 6 mo( ok for wait list for new provider) Encounter Details Date Type Department Care Team (Late st Contact Info) Description 01/06/2024 Telephone Family Medicine [address] [place] [id number] Rosemary Snyder PA-C [address] [place] [address] [place] [address] Appointment (Needs to establish with a doc... Allergies No known active allergiesdocumented as of this encounter (statuses as of 01/07/2024) Medications Medication Sig Dispensed Refills Start Date End Date Status Atorvastatin Calcium 20 MG Oral Tablet (Lipitor)Indications: Hyperlipidemia with target LDL less than 130 Take 1 Tablet by mouth in the morning. TAKE 1 TABLET BY MOUTH EVERY DAY IN THE MORNING. 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 documented as of this encounter (statuses as of 01/07/2024) Immunizations Name Administration Dates Next Due COVID-19, mRNA, LNP-s, PF, B ooster, 100mcg/0.5mg (Moderna) 07/09/2021,08/31/2020 Covid-19, Mrna, Lnp-s, Pf, B ivalent, 30 Mcg, IM, 12 yrs and above (Pfizer) 03/24/2022 Pneumococcal Conjugate Vaccine, 20-valent (Prevn ar20) 05/07/2022 Seasonal Influenza, Quadrivalent Hd (Fluzone Hd) 03/24/2022,07/09/2021 TDAP, Age 7 and older, IM (Adacel) 10/04/2007 documented as of this encounter Social History Tobacco Use Types Packs/Day Years Used Date Smoking Tobacco: Former Cigarettes 0.3 20 Smokeless Tobacco: Former Chew Comments:42 years of chewing tobacco Alcohol Use Standard Drinks/Week Comments Yes 0 (1 standard drink = 0.6 oz pur e alcohol) A couple beers per week Sex and Gender Information Value Date Recorded Sex Assigned at Male 05/11/2023 9:28 AM EST Gender Identity Male 05/11/2023 9:28 AM EST Sexual Orientation Straight 05/11/2023 9: 28 AM EST Job Start Date Occupation Industry Not on file Not on file Not on file documented as of this encounter Miscellaneous Notes * Telephone Encounter - Kurt Dickson OSA - 01/07/2024 2:22 PM EDT Pt wants to get est w/ new Dr. Dannielle Wadsworth. I added pt to Recall List to get him scheduled when her schedules open up. * Telephone Encounter - Kurt Dickson OSA - 01/06/2024 2:17 PM EDT Pt didn't check out from appt today . I will call pt to see who he wants to Estab with, documented in this encounter Plan of Treatment Health Maintenance Due Date Last Done Comments Cologuard 1997 Colonoscopy 1997 Sigmoidoscopy 1997 Zoster Vaccines (1 of 2) 2002 AAA Screening 2017 08/03/2002 DTaP,Tdap,and Td Vaccines (2 - Td or Tdap) 10/03/2017 10/04/2007 Depression Screening 10/03/2017 10/03/2016 Colorectal Cancer Screening 02/20/2018 Fecal Occult Blood Test 02/20/2018 02/20/2017, 08/01 COVID-19 Vaccine ( season) 2023 03/24/2022, 07/09/2021, 08/31/2020 Influenza Vaccine (FLU shot) (#1) 2024 03/24/2022, 07/09/2021 Lipid Panel 11/12/2028 11/13/2023, 07/24, 05/07/2022, Additional history exists Pneumococcal Vaccine: 65+ Years Completed 05/07/2022 HPV (Gardasil) Vaccine Aged Out No lo nger eligible based on patient's age to complete this topic Hepatitis B Vaccine Aged Out No longe r eligible based on patient's age to complete this topic MENINGOCOCCAL (MENACTRA/MENVEO) Aged Out No longer eligible based on patient's age to complete this topic documented as of this encounter Medical Devices Implanted Type Area International Trade Compliance Manager Device Identifier Shelf Expiration Date Model / Serial / Lot Lens Intraoc 22.0 - [id number] - [id number] Implanted:Qty: 1 on 05/29/2022 by Latrell Carpenter MD at OR [facility] Right: Eye BAUSCH [employer] LOMB 12/19/2026 [id number] / [id number] / [id number] Lens Intraoc 17.0 - [id number] - [id number] Implanted:Qty: 1 on 06/05/2022 by Latrell Carpenter MD at OR [facility] Left: Eye BAUSCH [employer] LOMB 03/21/2027 [id number] / [id number] / [id number] documented as of this encounter Advance Directives * No Code (Latest Code Status on File) Date Activated Date Inactivated Comments 06/05/2022 7:23 AM 06/05/2022 3:18 PM This order reflects the patients wishes and were consensually agreed upon. Question Answer Comments Discussion of Advance Directives occurred with: Patient Does the patient have a Living Will? No Does the patient have Health Care Power of Attor krish? No * No Code Date Activated Date Inactivated Comments 05/29/2022 8:14 AM 05/29/2022 2:20 PM This order r eflects the patients wishes and were consensually agreed upon. Question Answer Comments Discussion of Advance Directives occurred with: Patient Does the patient have a Living Will? No Does the patient have Health Care Power of Attor krish? No
--- OUTSIDE RECORDS SUMMARY | 2024-04-18 16:29 | External Medical Summary | Summary of Care ---
Author Name Unknown Organization [facility] Address [address] [place] [address] Phone [phone] Care Team Providers Care Crane Ladle Person Name Role Phone Unavailable Primary Care Provider Unavailabl e Reason for Visit * Reason Comments Outpatient Testing Encounter Details Date Type Department Care Team (Late st Contact Info) Description 11/13/2023 8:00 AM EDT Laboratory Laboratory [address] [place] [phone] [facility] Lab [address] [place] [address] Hyperlipidemia with target LDL less than 130 Allergies No known active allergiesdocumented as of this encounter (statuses as of 11/13/2023) Medications Medication Sig Dispensed Refills Start Date End Date Status Atorvastatin Calcium 20 MG Oral Tablet (Lipitor)Indications: Hyperlipidemia with target LDL less than 130 TAKE 1 TABLET BY MOUTH EVERY DAY IN THE MORNING 90 Tablet 11/06/2023 Active documented as of this encounter (statuses as of 11/13/2023) Active Problems Problem Noted Date Diagnosed Date Hyperlipidemia with target LDL less than 130 Overview: ICD-10 update of inactive term Displacement of cervical int ervertebral disc without myelopathy documented as of this encounter (statuses as of 11/13/2023) Immunizations Name Administration Dates Next Due COVID-19, mRNA, LNP-s, PF, B ooster, 100mcg/0.5mg (Moderna) 07/09/2021,08/31/2020 Covid-19, Mrna, Lnp-s, Pf, B ivalent, 30 Mcg, IM, 12 yrs and above (Pfizer) 03/24/2022 Pneumococcal Conjugate Vaccine, 20-valent (Prevn ar20) 05/07/2022 Seasonal Influenza, Quadrivalent Hd (Fluzone Hd) 03/24/2022,07/09/2021 TDAP (age 11 and older)(Adacel) 10/04/2007 documented as of this encounter Social [...] on file documented as of this encounter Plan of Treatment Pending Results Name Type Priority Associated Diagnoses Date /Time LIPID PANEL WITH DIRECT LDL IF TG IS HIGH Lab Routine Hyperlipidemia with target LDL less than 130 11/13/2023 7:51 AM EDT COMPREHENSIVE METABOLIC PANEL Lab Routine Hyperlipidemia with target LDL less than 130 11/13/2023 7:51 AM EDT Health Maintenance Due Date Last Done Comments Cologuard 1997 Colonoscopy 1997 Sigmoidoscopy 1997 Zoster Vaccines (1 of 2) 2002 AAA Screening 2017 DTaP,Tdap,and Td Vaccines (2 - Td or Tdap) 10/03/2017 10/04/2007 Depression Screening 10/03/2017 10/03/2016 Colorectal Cancer Screening 02/20/2018 Fecal Occult Blood Test 02/20/2018 02/20/2017, 08/01 COVID-19 Vaccine ( season) 2023 03/24/2022, 07/09/2021, 08/31/2020 Influenza Vaccine (FLU shot) (Season Ended) 2024 03/24/2022, 07/09/2021 Lipid Panel 08/13/2027 08/13/2022, 04/22, 07/19/2013, Additional history exists Pneumococcal Vaccine: 65+ Years Completed 05/07/2022 GARDASIL-HPV IMMUNIZATION SERIES Aged Out No longer eligible based on patient's age to complete this topic Hepatitis B Aged Out No longer eligi ble based on patient's age to complete this topic MENINGOCOCCAL (MENACTRA/MENVEO) Aged Out No longer eligible based on patient's age to complete this topic documented as of this encounter Medical Devices Implanted Type Area Other Sports Official Device Identifier Shelf Expiration Date Model / Serial / Lot Lens Intraoc 22.0 - [id number] - [id number] Implanted:Qty: 1 on 05/29/2022 by Latrell Carpenter MD at OR [facility] Right: Eye [employer]CH [employer]OMB 12/19/2026 [id number] / [id number] / [id number] Lens Intraoc 17.0 - [id number] - [id number] Implanted:Qty: 1 on 06/05/2022 by Latrell Carpenter MD at OR [facility] Left: Eye BAUSCH [employer] LOMB 03/21/2027 [id number] / [id number] / [id number] documented as of this encounter Visit Diagnoses Diagnosis Hyperlipidemia with target LDL less than 130 Other and unspecified hyperlipidemia documented in this encounter Advance Directives * No Code [...]
--- OUTSIDE RECORDS SUMMARY | 2024-04-18 16:29 | External Medical Summary ---
Author Name Unknown Address Unknown Organization [id number]:[facility] - [address] [facility] [place] [address] Laboratory Report Ordering Provider Test Date Status MEGHNA UMAÑA 11/13/2023 07:51:09 Final Observation Date Value Abnormality Reference (Units ) Status Triglyceride 11/13/2023 07:51:09 75 <=174 ( mg/dL) Final Triglyceride Reference Range s (mg/dL):
<150 Acceptable
150-174 Borderline high
175-499 High
>=500 Very high Cholesterol 11/13/2023 07:51:09 144 <200 (mg /dL) Final Total Cholesterol Reference Ranges (mg/dL):
<200 Desirable
200-239 Borderline high
>=240 High HDL 11/13/2023 07:51:09 50 >39 (mg/dL ) Final HDL Cholesterol Reference Ra nges (mg/dL):
>=60 High (Desirable)
<50 Low (Undesirable) For Females
<40 Low (Undesirable) For Males NON-HDL CHOLESTEROL 11/13/2023 07:51:09 94 <=159 (mg/dL) Final Non-HDL Cholesterol Referenc e Range (mg/dL):
<100 Target level for high risk ASCVD patient
<130 Optimal for general population
130-159 Near optimal for general population
160-189 Borderline High
190-219 High
>=220 Very High LDL, (calculated) 11/13/2023 07:51:09 79 <= 129 (mg/dL) Final LDL Cholesterol Reference Ra nges (mg/dL):
<70 Target level for high risk ASCVD patient
<100 Optimal for general population
100-129 Near optimal for general population
130-159 Borderline high
160-189 High
>=190 Very high Performing Location [facility] - [address] [facility] [address]
--- OUTSIDE RECORDS SUMMARY | 2024-04-18 16:29 | External Medical Summary | Summary of Care ---
Author Name Unknown Organization [facility] Address [address] [facility] [place] [address] Phone [phone] Care Team Providers Care Tariff Inspector Name Role Phone Unavailable Primary Care Provider Unavailabl e Reason for Visit * Reason Comments eRx-Medication Refill Encounter Details Date Type Department Care Team (Late st Contact Info) Description 11/05/2023 Refill Family Medicine [address] [place] [phone] Alda Elizondo PA-C [address] [place] [address] [place] [address] Hyperlipidemia with target LDL less than 130 Allergies No known active allergiesdocumented as of this encounter (statuses as of 11/17/2023) Medications Medication Sig Dispensed Refills Start Date End Date Status Atorvastatin Calcium 20 MG Oral Tablet (Lipitor)Indicati ons:Hyperlipidemi a with target LDL less than 130 TAKE 1 TABLET BY MOUTH EVERY DAY IN THE MORNING 90 Tablet 11/06/2023 Active Atorvastatin Calcium 20 MG Oral Tablet (Lipitor)Indicati ons:Hyperlipidemi a with target LDL less than 130 TAKE 1 TABLET BY MOUTH EVERY DAY IN THE MORNING 90 Tablet 1 05/13/2023 11/06/2023 Discontinued documented as of this encounter (statuses as of 11/17/2023) Active Problems Problem Noted Date Diagnosed Date Hyperlipidemia with target LDL less than 130 Overview: ICD-10 update of inactive term Displacement of cervical int ervertebral disc without myelopathy documented as of this encounter (statuses as of 11/17/2023) Immunizations Name Administration Dates Next Due COVID-19, [...] encounter Miscellaneous Notes * Telephone Encounter - Toni Galvin - 11/17/2023 9:12 PM EDT Received message from [facility] regarding patient needing appointment. Patient was notified. Successfully contacted patient and provided [facility] message. * Telephone Encounter - Inez Owen [facility] - 11/06/2023 5:42 AM EDTSigned Prescriptions: Disp Refills Atorvastatin Calcium 20 MG Oral Tablet (Li*90 Tab*0 Sig: TAKE 1 TABLET BY MOUTH EVERY DAY IN THE MORNING Authorizing Provider: ALDA ELIZONDO Ordering User: INEZ OWEN * Telephone Encounter - Inez Owen RPh - 11/06/2023 5:41 AM EDT Provided 90 days supply with 0 refill. Per refill protocol patient should have lipid cmp on file within past year. Reviewed AMP report, Care Gaps/Health Maintenance, medications list, and for any routine labs typically ordered for this patient. Lab orders placed. Please contact patient to schedule office visit with PRIMARY CARE and advise of labs ordered for blood draw.. Recommend patient to fast if able for labs. Patient may still have water and regular medications. Advise to obtain labs before requesting the next refill. Last Visit: 2023 acute Next Visit: Visit date not found Thank you, Inez Owen, PharmD. Clinical Pharmacist [facility] ([facility]) (formerly Telepharmacy) 11/06/2023, 5:41 AM documented in this encounter Plan of Treatment Health Maintenance Due Date Last Done Comments Cologuard 1997 Colonoscopy 1997 Sigmoidoscopy 1997 Zoster Vaccines (1 of 2) 2002 AAA Screening 2017 DTaP,Tdap,and Td Vaccines (2 - Td or Tdap) 10/03/2017 10/04/2007 Depression Screening 10/03/2017 10/03/2016 Colorectal Cancer Screening 02/20/2018 Fecal Occult Blood Test 02/20/2018 02/20/2017, 08/01 COVID-19 Vaccine ( - season) 2023 03/24/2022, 07/09/2021, 08/31/2020 Influenza Vaccine (FLU shot) (Season Ended) 2024 03/24/2022, 07/09/2021 Lipid Panel 11/12/2028 11/13/2023, [...] this encounter Medical Devices Implanted Type Area Content Curator Device Identifier Shelf Expiration Date Model / Serial / Lot Lens Intraoc 22.0 - [id number] - [id number] Implanted:Qty: 1 on 05/29/2022 by Latrell Carpenter MD at OR [facility] Right: Eye BAUSCH [employer] LOMB 12/19/2026 [id number] / [id number] / [id number] Lens Intraoc 17.0 - [id number] - [id number] Implanted:Qty: 1 on 06/05/2022 by Latrell Carpenter MD at OR [facility] Left: Eye BAUSCH & LOMB 03/21/2027 [id number] / [id number] / [id number] documented as of this encounter Results * COMPREHENSIVE METABOLIC PANEL (11/13/2023 7:51 AM EDT) BUN 20 6 - 20 mg/dL 11/13/2023 3:07 PM EDT [facility] Creatinine 1.1 0.6 - 1.2 mg/dL 11/13/2023 3:07 PM EDT [facility] Estimated Glomerular Filtration Rate 69 >=60 mL/min 11/13/2023 3:07 PM EDT [facility] Comment:eGFR is calculated b ased on the CKD-EPI 2020 equation Sodium 139 135 - 146 mmol/L 11/13/2023 3:07 PM EDT [facility] Potassium 4.6 3.5 - 5.1 mmol/L 11/13/2023 3:07 PM EDT [facility] Chloride 106 98 - 107 mmol/L 11/13/2023 3:07 PM EDT [facility] CO2 24 22 - 32 mmol/L 11/13/2023 3:07 PM EDT [facility] Anion Gap 9 7 - 15 mmol/L 11/13/2023 3:07 PM EDT [facility] Glucose 102 70 - 120 mg/dL 11/13/2023 3:07 PM EDT [facility] Albumin 4.6 3.8 - 5.0 g/dL 11/13/2023 3:07 PM EDT [facility] AST 16 10 - 50 U/L 11/13/2023 3:07 PM EDT [facility] Alkaline Phosphatase 61 35 - 130 U/L 11/13/2023 3:07 PM EDT [facility] Bilirubin, Total 0.5 <=1.2 mg/dL 11/13/2023 3:07 PM EDT [facility] Calcium 9.6 8.4 - 10.2 mg/dL 11/13/2023 3:07 PM EDT [facility] Protein 6.6 6.0 - 8.3 g/dL 11/13/2023 3:07 PM EDT [facility] ALT 29 10 - 50 U/L 11/13/2023 3:07 PM EDT [facility] Blood Venous blood specimen / Unknown Venipuncture / Unknown 11/13/2023 7:51 AM EDT 11/13/2023 7:51 AM EDT Inez Owen [facility] LAB BLOOD ORDERA BLES [facility] [address] [place] [address] * LIPID PANEL WITH DIRECT LDL IF TG IS HIGH (11/13/2023 7:51 AM EDT) Triglycerides 75 <=174 mg/dL 11/13/2023 3:07 PM EDT [facility] Comment: Triglyceride Reference Ranges (mg/dL): <150 Acceptable 150-174 Borderline high 175-499 High >=500 Very high Cholesterol 144 <200 mg/dL 11/13/2023 3:07 PM EDT [facility] Comment: Total Cholesterol Reference Ranges (mg/dL): <200 Desirable 200-239 Borderline high >=240 High HDL Cholesterol 50 >39 mg/dL 3:07 PM EDT [facility] Comment: HDL Cholesterol Reference Ranges (mg/dL): >=60 High (Desirable) <50 Low (Undesirable) For Females <40 Low (Undesirable) For Males Non-HDL Cholesterol 94 <=159 mg/dL 11/13/2023 3:07 PM EDT [facility] Comment: Non-HDL Cholesterol Reference Range (mg/dL): <100 Target level for high risk ASCVD patient <130 Optimal for general population 130-159 Near optimal for general population 160-189 Borderline High 190-219 High >=220 Very High LDL Cholesterol 79 <=129 mg/dL 11/13/2023 3:07 PM EDT [facility] Comment: LDL Cholesterol Reference Ranges (mg/dL): <70 Target level for high risk ASCVD patient <100 Optimal for general population 100-129 Near optimal for general population 130-159 Borderline high 160-189 High >=190 Very high Blood Venous blood specimen / Unknown Venipuncture / Unknown 11/13/2023 7:51 AM EDT 11/13/2023 7:51 AM EDT Inez Owen [facility] LAB BLOOD ORDERA BLES [facility] [address] [place] [address] documented in this encounter Visit Diagnoses Diagnosis Hyperlipidemia with [...]
--- OUTSIDE RECORDS SUMMARY | 2024-04-18 16:29 | External Medical Summary | Summary of Care ---
Author Name Unknown Organization [facility] Address [address] [facility] [place] [address] Phone [phone] Care Team Providers Care Composite Mechanic Name Role Phone Unavailable Primary Care Provider Unavailabl e Reason for Visit * Reason Comments Re-Check Encounter Details Date Type Department Care Team (Latest Contact Info) Description 01/06/2024 8:20 AM EDT Office Visit Family Medicine [address] [place] [phone] Rosemary Snyder PA-C [address] [place] [address] [place] [id number] Displacement of cervical intervertebral disc without myelopathy*; Hyperlipidemia with target LDL less than 130; Chronic pain of right knee Allergies No known active allergiesdocumented as of this encounter (statuses as of 01/06/2024) Medications Medication Sig Dispensed Refills Start Date End Date Status Atorvastatin Calcium 20 MG Oral Tablet (Lipitor)Indicati ons:Hyperlipidemi a with target LDL less than 130 Take 1 Tablet by mouth in the morning. TAKE 1 TABLET BY MOUTH EVERY DAY IN THE MORNING. 90 Tablet 1 01/06/2024 Active Atorvastatin Calcium 20 MG Oral Tablet (Lipitor)Indicati ons:Hyperlipidemi a with target LDL less than 130 TAKE 1 TABLET BY MOUTH EVERY DAY IN THE MORNING 90 Tablet 11/06/2023 01/06/2024 Discontinued (Refill) Hospital, Clinic, or Other Facility Administered Medication Ordered Dose Route Frequency Start Date End Date Status Triamcinolone Acetonide (Kenalog) 40 MG/ML inj 80 mgIndications:Chronic pain of right knee 80 mg IX ONCE 01/06/2024 01/06/2024 Ended lidocaine 2 % inj 20 mgIndications:Chronic pain of right knee 20 mg IX ONCE 01/06/2024 01/06/2024 Ended documented as of this encounter (statuses as of 01/06/2024) Active Problems Problem Noted Date Diagnosed Date Hyperlipidemia with target LDL less than 130 Overview: ICD-10 update of inactive term Displacement of cervical int ervertebral disc without myelopathy documented as of this encounter (statuses as of 01/06/2024) Immunizations Name Administration Dates Next Due COVID-19, [...] on file documented as of this encounter Last Filed Vital Signs Vital Sign Reading Time Taken Comments Blood Pressure 122/78 01/06/2024 8:16 AM EDT Pulse 56 01/06/2024 8:16 AM EDT Temperature 36.4 C (97.6 F) 01/06/2024 8:16 AM ED T Respiratory Rate 16 01/06/2024 8:16 AM EDT Oxygen Saturation 98% 01/06/2024 8:16 AM EDT Inhaled Oxygen Concentration - - Weight 78.5 kg (173 lb) 01/06/2024 8:16 AM EDT Height 175.3 cm (5' 9") 01/06/2024 8:16 AM EDT Body Mass Index 25.55 01/06/2024 8:16 AM EDT documented in this encounter Progress Notes * Rosemary Snyder PA-C - 01/06/2024 8:18 AM EDT Nursing Notes: Serenity Belcher, D[place] 01/06/24 0822 Sign at exiting of workspace Here for check up, would like to have his right knee injected( has been discussed in the past) Pt here today for recheck. Pt with PMH of dyslipidemia, neck pain. Pt would like his right knee injected. Just had labs - everything looks great. Review of patient's allergies indicates: No Known Allergies Current Outpatient Medications Medication Sig Dispense Refill Atorvastatin Calcium 20 MG Oral Tablet (Lipitor) TAKE 1 TABLET BY MOUTH EVERY DAY IN THE MORNING 90Tablet 0 No current facility-administered medications for this visit. Past Medical History: Diagnosis Date Acute gastric ulcer without mention of hemorrhage, perforation, or obstruction 11/06/2006 acute prepyloric antral ulcer, duodenal bulb ulcerations, duodenitis and mild gastritis Displacement of cervical intervertebral disc without myelopathy Encounter for hepatitis C screening test for low risk patient 05/07/2022 negative Fracture of metacarpal, closed H. pylori infection 11/06/2006 Dr Hoang, EGD shows multiple shallow duodenal ulcers, prepyloric antral ulcer Social History Socioeconomic History Marital status: Spouse name: Not on file Number of children: 2 Years of education: Not on file Highest education level: Not on file Occupational History Not on file Tobacco Use Smoking status: Former Current packs/day: 0.25 Average packs/day: 0.3 packs/day for 20.0 years (5.0 ttl pk-yrs) Types: Cigarettes Smokeless tobacco: Former Types: Chew Tobacco comments: 42 years of chewing tobacco Vaping Use Vaping status: Never Used Substance and Sexual Activity Alcohol use: Yes Comment: A couple beers per week Drug use: No Sexual activity: Yes Partners: Female Other Topics Concern Not on file Social History Narrative Not on file Social Determinants of Health Financial Resource Strain: Low Risk (05/11/2023) Financial Resource Strain Do you have any trouble paying for your medications, or do you think you might in the future? (Adult - for ages 18 years and over): No Does your family have trouble paying for medicine? (Household - for ages 0-17 years): Not on file Food Insecurity: No Food Insecurity (05/11/2023) Food Insecurity Do you need food for this week? (Adult - for ages 18 years and over): No Are you able to get enough food for your family? (Household - for ages 0-17 years): Not on file Does your family need food this week? (Household - for ages 0-17 years): Not on file Do you always have enough food for your family? (Household - for ages 0-17 years): Not on file Transportation Needs: No Transportation Needs (05/11/2023) Transportation Needs Do you have trouble getting a ride to medical visits or work? (Adult - for ages 18 years and over):Never True Does your family have a hard time getting a ride to doctors visits? (Household - for ages 0-17 years): Not on file Has lack of transportation kept you from medical appointments, meetings, work, or from getting things needed for daily living? Check all that apply. (Adult - for ages 18 years and over): Not on file Do you (or your family) have trouble finding or paying for a ride (transportation)? (Household - for ages 0-17 years): Not on file Social Connections: Socially Integrated (05/11/2023) Social Connections How often do you feel lonely or isolated from those around you? (Adult - for ages 18 years and over): Never Housing Stability: Low Risk (05/11/2023) Housing Stability Do you currently live in a snf or have no steady place to sleep at night? (Adult - for ages 18 years and over): No Do you think you are at risk of becoming homeless? (Adult - for ages 18 years and over): No Does your family worry about paying for your home or becoming homeless? (Household - for ages 0-17 years): Not on file Are you homeless or worried that you might be in the future? (Adult - for ages 18 years and over): Not on file Are you (or your family) homeless or worried that you might be in the future? (Household - for ages0-17 years): Not on file O:Blood pressure 122/78, pulse 56, temperature 36.4 C (97.6 F), resp. rate 16, height 1.753 m (5' 9"), weight 78.5 kg (173 lb), SpO2 98%. GENERAL: alert, healthy, and no distress NECK: supple, no adenopathy, no bruits, thyroid normal size, non-tender, without nodularity EYES: PERRLA, conjunctiva are pink and non-injected, sclera clear EARS: External ears normal, Canals clear, TM's Normal NOSE: no mucosal erythema, no mucosal edema, no purulent discharge OROPHARYNX: no exudate, no erythema, lips, buccal mucosa, and tongue normal, and mucous membranes are moist HEART: regular rate & rhythm, no murmur, and no gallops LUNGS: chest symmetric with normal AP diameter, no chest deformities noted, no chest wall tenderness, lungs clear to auscultation ABDOMEN: abdomen soft, non-tender, normal bowel sounds, and no masses or organomegaly A:Displacement of cervical intervertebral disc without myelopathy (Primary) Hyperlipidemia with target LDL less than 130 - Atorvastatin Calcium 20 MG Oral Tablet (Lipitor); Take 1 Tablet by mouth in the morning. TAKE 1 TABLET BY MOUTH EVERY DAY IN THE MORNING. Chronic pain of right knee - ARTHROCENT ASP &/OR INJ MAJOR JX/BURSA W/O US - Triamcinolone Acetonide (Kenalog) 40 MG/ML inj 80 mg - lidocaine 2 % inj 20 mg Right knee prepped with betadine and alcohol swab x 2. Right knee injected with 80 mg kenalog and 1.0 mL lidocaine. Pt tolerated procedure well. Any questions/problems, please call. If anything changes, worsens, develops new sx, please call [facility]. Follow-up: Return if symptoms worsen or fail to improve. | Check-out note: Needs to establish with a doctor 6 mo( ok for wait list for new provider) Rosemary Snyder PA-C documented in this encounter Nursing Notes * Serenity Belcher RN - 01/06/2024 8:20 AM EDT Here for check up, would like to have his right knee injected( has been discussed in the past) documented in this encounter Plan of Treatment Scheduled Orders Name Type Priority Associated Diagnoses Orde r Schedule ARTHROCENT ASP &/OR INJ MAJOR JX/BURSA W/O US Procedures Routine Chronic pain of right knee Ordered: 01/06/2024 Health Maintenance Due Date Last Done Comments [...] this encounter Medical Devices Implanted Type Area Rn Diabetes Device Identifier Shelf Expiration Date Model / Serial / Lot Lens Intraoc 22.0 - [id number] - [id number] Implanted:Qty: 1 on 05/29/2022 by Latrell Carpenter MD at [facility] Right: Eye [employer] 12/19/2026 [id number] / [id number] / [id number] Lens Intraoc 17.0 - [id number] - [id number] Implanted:Qty: 1 on 06/05/2022 by Latrell Carpenter MD at OR [facility] Left: Eye [employer] 03/21/2027 [id number] / [id number] / [id number] documented as of this encounter Visit Diagnoses Diagnosis Displacement of cervical intervertebral disc without myelopathy- Primary Hyperlipidemia with target LDL less than 130 Other and unspecified hyperlipidemia Chronic pain of right knee documented in this encounter Administered Medications Inactive Administered Medications - up to 3 most recent administrations Medication Order MAR Action Action Date Dose Rate Site lidocaine 2 % inj 20 mg 20 mg (1 mL), Intra-Articular, ONCE, On Thu01/06/24 at 0930, For 1 dose Given 01/06/2024 8:50 AM EDT 20 mg Knee Right Triamcinolone Acetonide (Kenalog) 40 MG/ML inj 80 mg 80 mg, Intra-Articular, ONCE, On Thu01/06/24 at 0930, For 1 dose Given 01/06/2024 8:51 AM EDT 80 mg Knee Right documented in this encounter Advance Directives * [...]
--- OUTSIDE RECORDS SUMMARY | 2024-04-18 16:29 | External Medical Summary | Summary of Care ---
Author Name Unknown Organization [facility] [address] [facility] [address] Phone [phone] Care Team Providers Care Fly Finisher Name Role Phone Unavailable Primary Care Provider Unavailabl e Reason for Visit * Reason Onset Date Comments Appointment 01/06/2024 Needs to establi sh with a doctor 6 mo( ok for wait list for new provider) Encounter Details Date Type Department Care Team (Late st Contact Info) Description 01/06/2024 Telephone Family Medicine [address] [place] [phone] Rosemary Snyder PA-C [address] [place] [address] [place] [id number] Appointment (Needs to establish with a [...] this encounter Medical Devices Implanted Type Area Structural Steel Shop Supervisor Device Identifier Shelf Expiration Date Model / Serial / Lot Lens Intraoc 22.0 - [id number] - [id number] Implanted:Qty: 1 on 05/29/2022 by Latrell Carpenter MD at OR [facility] Right: Eye [employer] 12/19/2026 [id number] / [id number] / [id number] Lens Intraoc 17.0 - [id number] - [id number] Implanted:Qty: 1 on 06/05/2022 by Latrell Carpenter MD at OR [facility] Left: Eye [employer] 03/21/2027 [id number] / [id number] / [id number] documented as of this encounter Advance Directives [...]
--- OUTSIDE RECORDS SUMMARY | 2024-04-18 16:29 | External Medical Summary | Summary of Care ---
Author Name Unknown Organization [facility] Address [address] [facility] [place] [address] Phone [phone] Care Team Providers Care Crib Pad Maker Name Role Phone Unavailable Primary Care Provider Unavailabl e Reason for Visit * Reason Comments Re-Check Encounter Details Date Type Department Care Team (Latest Contact Info) Description 01/06/2024 8:20 AM EDT Office Visit Family Medicine [address] [place] [phone] Rosemary Snyder PA-C [address] [place] [address] [place] [phone] Displacement of cervical intervertebral disc without myelopathy*; [...] Stability Do you currently live in a care home or have no steady place to sleep [...] this encounter Medical Devices Implanted Type Area Finishing Operator Device Identifier Shelf Expiration Date Model / Serial / Lot Lens Intraoc 22.0 - [id number] - [id number] Implanted:Qty: 1 on 05/29/2022 by Latrell Carpenter MD at OR [facility] Right: Eye [employer] 12/19/2026 [id number] / [id number] / [id number] Lens Intraoc 17.0 - [id number] - [id number] Implanted:Qty: 1 on 06/05/2022 by Latrell Carpenter MD at OR [facility] Left: Eye [employer] 03/21/2027 [id number] / [id number] / [id number] documented as of this encounter Visit Diagnoses [...]
--- OUTSIDE RECORDS SUMMARY | 2024-04-18 16:30 | External Medical Summary | Summary of Care ---
Author Name Unknown Organization [facility] Address [address] [facility] [place] [address] Phone [phone] Care Team Providers Care Certified Scrub Tech Name Role Phone Unavailable Primary Care Provider Unavailabl e Encounter Details Date Type Department Care Team (Late st Contact Info) Description 11/10/2023 Orders Only PATIENT PORTAL DO NOT DELETE THIS DEPT USED BY [place] DODSON [id number] Allergies No known active allergiesdocumented as of this encounter (statuses as of 11/10/2023) Medications Medication Sig Dispensed Refills Start Date End Date Status Atorvastatin Calcium 20 MG Oral Tablet (Lipitor)Indications: Hyperlipidemia with target LDL less than 130 TAKE 1 TABLET BY MOUTH EVERY DAY IN THE MORNING 90 Tablet 11/06/2023 Active documented as of this encounter (statuses as of 11/10/2023) Active Problems Problem Noted Date Diagnosed Date Hyperlipidemia with target LDL less than 130 Overview: ICD-10 update of inactive term Displacement of cervical int ervertebral disc without myelopathy documented as of this encounter (statuses as of 11/10/2023) Immunizations Name Administration Dates Next Due COVID-19, [...] as of this encounter Plan of Treatment Health Maintenance [...] this encounter Medical Devices Implanted Type Area Physical Therapy Professor Device Identifier Shelf Expiration Date Model / Serial / Lot Lens Intraoc 22.0 - [id number] - [id number] Implanted:Qty: 1 on 05/29/2022 by Latrell Carpenter MD at OR [facility] Right: Eye [employer] 12/19/2026 [id number] / [id number] / [id number] Lens Intraoc 17.0 - [id number] - [id number] Implanted:Qty: 1 on 06/05/2022 by Latrell Carpenter MD at OR [facility] Left: Eye [employer] 03/21/2027 [id number] / [id number] / [id number] documented as of this encounter Advance Directives [...]
--- OUTSIDE RECORDS SUMMARY | 2024-04-18 16:30 | External Medical Summary ---
Author Name Unknown Address Unknown Organization K01:[facility]ORY [facility] - [address] [place] [address] [place] [address] Laboratory Report Ordering Provider Test Date Status MEGHNA UMAÑA 11/13/2023 07:51:09 Final Observation Date Value Abnormality Reference (Units ) Status BUN 11/13/2023 07:51:09 20 6-20 (mg/dL) Final Creatinine 11/13/2023 07:51:09 1.1 0.6-1.2 (mg/dL) Final Glomerular filtration rate/1.73 sq M.predicted [Volume Rate/Area] in Serum, Plasma or Blood by Creatinine-based formula (CKD-EPI) 11/13/2023 07:51:09 69 >=60 (mL/min) Final eGFR is calculated based on the CKD-EPI 2020 equation Sodium 11/13/2023 07:51:09 139 135-146 (m mol/L) Final Potassium 11/13/2023 07:51:09 4.6 3.5-5.1 (m mol/L) Final Cl 11/13/2023 07:51:09 106 98-107 (mm ol/L) Final CO2 11/13/2023 07:51:09 24 22-32 (mmo l/L) Final Anion gap 11/13/2023 07:51:09 9 7-15 (mmol /L) Final Glucose 11/13/2023 07:51:09 102 70-120 (mg /dL) Final Albumin 11/13/2023 07:51:09 4.6 3.8-5.0 (g /dL) Final AST (Aspartate aminotransferase) 11/13/2023 07:51:09 16 10-50 (U/L) Final Alk Phos 11/13/2023 07:51:09 61 35-130 (U/ L) Final Bilirubin, Total 11/13/2023 07:51:09 0.5 <=1 .2 (mg/dL) Final Calcium 11/13/2023 07:51:09 9.6 8.4-10.2 ( mg/dL) Final Protein 11/13/2023 07:51:09 6.6 6.0-8.3 (g /dL) Final ALT (Alanine aminotransferase) 11/13/2023 07:51:09 29 10-50 (U/L) Final Performing Location [facility] - [address] [facility] [address]
--- NOTE | 2024-04-20 10:35 | Pharmacy Report ---
Pharmacist Stroke Counseling - Date of Service April 20, 2024 - Scope: Pharmacy has been consulted to provide medication discharge counseling for this patient admitted with transient ischemic attack as per the Pharmacist Discharge Counseling for Stroke Patients Protocol. - Medications on Discharge: Home Medications Medication Instructions Recorded Confirmed atorvastatin 20 mg tablet 20 mg PO QAM 04/17/24 04/20/24 Pharmacist Discharge Consult 1 ea Not Applicable UD PRN ud 04/20/24 [Pharmacist Discharge Med Rec Consult] New Rx's Medication Instructions Recorded aspirin 81 mg tablet,delayed 81 mg PO QAM #30 tabs 04/18/24 release clopidogrel 75 mg tablet 75 mg PO QAM 30 days #30 tabs 04/18/24 - Action: The above medications, specifically ones for stroke treatment/prophylaxis, have been reviewed in detail with the patient and/or patient customer success representative(s) prior to discharge. This includes indication, common adverse reactions, drug interactions, and medication administration. Medication counseling has been employed using the teach-back method to ensure understanding. - Outcome: The patient and/or patient customer success representative(s) have demonstrated understanding of the medications. Additional comments: * Patient confirmed that medications were picked up from the pharmacy. * Patient scheduled for surgery next week. Duration of dual antiplatelet therapy to be determined by outpatient providers. * No barriers to medication compliance identified. Thank you for allowing pharmacy to be involved in the care of this patient. Please call [phone] with any additional questions
== END 2024-04-18 15:13 | disposition home or self-care (01) ==
LOC: ED 14:29 → 2N 14:29

== ENCOUNTER 2024-04-27 12:09 | Inpatient (IN) ==
--- NOTE | 2024-04-25 13:30 | Anesthesiology Consultation ---
Date of Service April 25, 2024 Assessment & Plan (1) Encounter for pre-operative examination: - Infectious disease screening: Per assessment on 04/25/24- No known recent infectious disease contacts or current infectious disease symptoms. - ASA/plavix instructions per surgeon/prescriber Chart Review Chart Review: Acceptable Risk for Surgery and Patient NOT seen in Pre Admission Testing History Surgery Operation Date: 04/27/24 13:40 Proposed Procedures p Right Transcarotid Artery Revascularization - Nakul Bailey MD Height/Weight Height: 5 ft 9 in Weight: 77.111 kg Allergies Allergy/AdvReac Type Severity Reaction Status Date / Time No Known Allergies Allergy Verified 04/20/24 07:58 Medications Home Medications Medication Instructions Recorded Confirmed Last Taken atorvastatin 20 mg tablet 20 mg PO QAM 04/17/24 04/20/24 Unknown aspirin 81 mg tablet,delayed 81 mg PO QAM #30 tabs 04/18/24 04/20/24 Unknown release clopidogrel 75 mg tablet 75 mg PO QAM 30 days #30 tabs 04/18/24 04/20/24 Unknown Pharmacist Discharge Consult 1 ea Not Applicable UD PRN ud 04/20/24 Unknown [Pharmacist Discharge Med Rec Consult] Past Medical History Medical History Carotid stenosis, bilateral CKD (chronic kidney disease), stage II Per [facility] records History of gastric ulcer 2006 Per [facility] records Hypercholesterolemia Stroke 04/17/24, no residual effects Past Surgical History Surgical History History of esophagogastroduodenoscopy (EGD) Hx of bilateral cataract extraction Hx of colonoscopy Hx of tonsillectomy Social History Smoking Status: Former smoker Do You Dip or Chew Tobacco: No (quit age 54; advised) Smoking End Date: 30 years ago Hx Alcohol Use: Yes (quit 02/2024) Hx Substance Use: No substance use type: does not use Lab Results Anesthesia Preop Results Results Anesthesia Widget: WBC 8.16 K/ul (4.8-10.8) 04/25/24 Hgb 14.8 g/dl (14.0-18.0) 04/25/24 Hct 43.8 % (42.0-52.0) 04/25/24 Plt 258 K/uL (130-400) 04/25/24 Na 141 mmol/L (136-145) 04/25/24 K 4.1 mmol/L (3.5-5.1) 04/25/24 Cl 107 mmol/L (98-107) 04/25/24 CO2 28 mmol/L (21-32) 04/25/24 BUN 18 mg/dl (6-23) 04/25/24 Creat 1.02 mg/dl (0.6-1.4) 04/25/24 Glucose Level 95 mg/dl (70-99(Fasting)) 04/25/24 POC Glucose 98 mg/dl (70-99) 04/17/24 PT 11.2 Seconds (9.0-12.0) 04/25/24 PTT 27 Seconds (21-31) 04/25/24 INR 1.0 (0.9-1.1) 04/25/24 HA1c 5.6 % (4.5-5.6) 04/18/24 Blood Type A Positive 04/25/24 Antibody Screen NEGATIVE 04/25/24 Testing Electrocardiogram Date: 05/19/24 SB at 52bpm. "Otherwise normal ECG" Chest X-Ray Date: 04/25/24 FINDINGS: The cardiac silhouette measures within normal limits. The hilar and mediastinal structures appear unremarkable. The lungs are clear. The osseous structures appear grossly intact. Degenerative changes of the thoracic spine IMPRESSION: No evidence of acute cardiopulmonary disease, communicable disease or tuberculosis. Echocardiogram Date: 04/18/24 LVEF Other Testing Head CT Date: 04/17/24 FINDINGS: No acute intracranial hemorrhage, midline shift or mass effect is present. The ventricular system is unremarkable. The basal cisterns are patent. No extra-axial collections are present. There are no findings to suggest acute dural sinus thrombosis or acute territorial infarct. No significant calvarial abnormalities are present. Visualized portions of the sinuses and mastoid air cells are clear. IMPRESSION: No acute intracranial findings. Head CTA Date:L 04/17/24 FINDINGS: No acute intracranial hemorrhage, midline shift or mass effect is present. Brain volume is normal. Ventricular system is normal. Basal cisterns are patent. The bilateral M1, M2, A1 and A2 segments are patent. No large vessel occlusion is present. Posterior circulation is intact. There is persistence of the left posterior cerebral artery and a large right posterior communicating artery. Basilar artery is patent. There is no intracranial aneurysm or dissection. IMPRESSION: No large vessel occlusion. No intracranial aneurysm. Neck CTA Date: 04/17/24 Findings: No cervical lymphadenopathy is identified. There are no cervical spine fractures. No consolidation is identified within visual portions of the lung apices. The bilateral common carotid arteries are patent. There is calcified and noncalcified plaque within the proximal bilateral internal carotid arteries with resultant stenosis. The proximal right internal carotid artery measures 1.7 mm in caliber. The distal right internal carotid artery measures 5.4 mm in caliber. The proximal left internal carotid artery measures 2 mm in caliber. The more distal left cervical internal carotid artery measures 5.6 mm. [Artery is dominant and patent. Right vertebral artery is somewhat diminutive, likely on a congenital basis. No aneurysm or dissection within the neck. IMPRESSION: Noncalcified and calcified atherosclerotic plaque within the proximal bilateral internal carotid arteries which results in approximate 70% stenosis of the proximal bilateral internal carotid arteries. Dominant, patent left vertebral artery. Somewhat diminutive right vertebral artery, likely on a congenital basis. Brain MRI Date: 04/17/24 FINDINGS: There are a few small foci of restricted diffusion within the posterior right frontal lobe and anterior right parietal lobe. The foci of restricted diffusion measure up to 6 mm. Mild associated T2 hyperintensity is noted. The T2 hyperintense foci measure up to 1.3 cm. There is no mass effect or evidence for hemorrhagic conversion. In addition, there is a small T2 hyperintense focus within the right occipital lobe on coronal FLAIR image . This is mildly hyperintense on the diffusion-weighted sequence. This may be slightly hypointense on the ADC map Ventricular system is normal. Basal cisterns are patent. There are no extra-axial collections. Flow-voids for the major intracranial vessels are present. No intracranial masses are identified on this unenhanced exam. IMPRESSION: A few small infarcts within the posterior right frontal and anterior right parietal lobes which are likely acute. Mild associated T2 hyperintensity. No mass effect or evidence for hemorrhagic conversion. Small T2 hyperintense focus with mild restricted diffusion within the right occipital lobe. This favors an additional acute to subacute infarct. No intracranial hemorrhage. No mass effect.
--- NOTE | 2024-04-27 07:34 | History & Physical Report ---
Date of Service April 27, 2024 History of Present Illness Primary Care Provider: Dannielle Summers April 18, 2024 Assessment & Plan (1) Carotid stenosis, bilateral: Pt admitted with R hemispheric TIA. Pt with bilateral carotid stenosis, however, R ICA is symptomatic. All sx currently resolved. Pt imaging reviewed by Dr Cummins, who also saw the pt today. Recommends pt undergo surgical intervention to R ICA stenosis. Options of R CEA vs TCAR were discussed at length with pt. Pt elects to proceed with R TCAR. Pt will need to remain on DAPT and statin medication to undergo surgery. Would also order TTE pre operatively. Office will call pt to make arrangements. OK for d/c home from vascular standpoint after echo. History of Present Illness Reason for Consultation: R ICA stenosis Attending Physician: Jessi Huang MD History of Present Illness 73 yo m with hx of hyperlipidemia admitted with R hemispheric TIA, seen in consultation today for R ICA stenosis. Pt states he was picking up sandwiches for dinner and noted his L arm was numb and weak when he was getting back in the car. Sx slowly improved over approx 30 min, almost gone by the time he arrived at [facility]. States woke up with L hand numbness for about 15 minutes a few months ago as well. Denies any other associated sx, including amaurosis, facial droop, dysarthria, aphasia, confusion, LUNDBERG, dizziness, balance problems. Denies any hx of heart problems, but does state he was told he has a murmur in the past. CTA neck demonstrates R ICA stenosis of 70% with possible ulcerated plaque. L ICA with approx 70% stenosis as well. Allergies Allergy/AdvReac Type Severity Reaction Status Date / Time [id number] Allergy Unknown Uncoded 01/19/08 07:55 Home Medications Medication Instructions Recorded Confirmed Type atorvastatin 20 mg tablet 20 mg PO DAILY 04/17/24 04/17/24 History Patient History Social History Smoking Status: Never smoker Hx Alcohol Use: No Hx Substance Use: No Preferred Language: [place] Communication Ability: Effective Automotive Fleet Supervisor Required: No Beliefs That Will Affect Care: None Current Living Situation: Spouse Other Information That Helps Us Care for You: No Feels Safe at Home: Yes Safety Concerns: Feels Safe At This Time Review of Systems Review of Systems: All systems reviewed & are unremarkable except as noted in HPI & below Physical Exam Constitutional: WD/WN, vitals as above healthy appearing, cooperative and comfortable; not in distress Neck: trachea midline Respiratory: normal respiratory effort, lungs clear to auscultation Cardiovascular: Rate/Rhythm: regular rate and regular rhythm Vessels: + carotid bruit, femoral pulses present, posterior tibial pulses present, dorsalis pedis pulses present and radial pulses present Extremities: normal capillary refill; no edema Gastrointestinal (Abdomen): Inspection/Auscultation: abdomen normal to inspection and normal bowel sounds Percussion/Palpation: abdomen soft; abdomen nontender Musculoskeletal: no cyanosis or clubbing, extremities motor strength 5/5 Skin: no rashes, warm and dry Neurologic: moves all extremities and awake; no focal motor deficits and not confused Psychiatric: A+Ox3, euthymic affect Results & Data Vital Signs (Past 12 Hours) Vital Signs Temp Pulse Pulse Resp BP Pulse Ox O2 Del Method 04/18/24 07:45 36.5 C 53 L 18 129/73 97 Room Air 04/18/24 03:32 36.6 C 52 L 16 116/73 96 Room Air 04/18/24 00:11 36.5 C 77 16 117/68 95 Room Air 04/17/24 21:47 54 L Signed By: <Electronically signed by Luh Wright PA-C> 04/18/24 0943 <Electronically signed by Nakul Cummins MD> 04/18/24 0944 Created: 04/18/24 0929 The status of this report is Signed. Draft = Not yet reviewed or approved by Medical Physician. Signed = Reviewed and approved by Medical Physician. Allergies Allergy/AdvReac Type Severity Reaction Status Date / Time No Known Allergies Allergy Verified 04/20/24 07:58 Home Medications Medication Instructions Recorded Confirmed Type atorvastatin 20 mg tablet 20 mg PO QAM 04/17/24 04/20/24 History aspirin 81 mg tablet,delayed 81 mg PO QAM #30 tabs 04/18/24 04/20/24 Rx release clopidogrel 75 mg tablet 75 mg PO QAM 30 days #30 tabs 04/18/24 04/20/24 Rx Pharmacist Discharge Consult 1 ea Not Applicable UD PRN ud 04/20/24 History [Pharmacist Discharge Med Rec Consult] Past Med/Surg History Problem List Encounter for pre-operative examination Medical History Carotid stenosis, bilateral CKD (chronic kidney disease), stage II Per [facility] records History of gastric ulcer 2006 Per [facility] records Hypercholesterolemia Stroke 04/17/24, no residual effects Surgical History History of esophagogastroduodenoscopy (EGD) Hx of bilateral cataract extraction Hx of colonoscopy Hx of tonsillectomy Social History Smoking Status: Former smoker Tobacco Type: Cigarettes Smoking End Date: 30 years ago; Second Hand Exposure: Yes (hx); Do You Dip or Chew Tobacco: No (quit age 54; advised); Tobacco Cessation Education Requested by Patient: No Hx Alcohol Use: Yes (quit 02/2024) Hx Substance Use: No Preferred Language: Canadian Communication Ability: Effective Automotive Fleet Supervisor Required: No Beliefs That Will Affect Care: None Current Living Situation: Spouse Other Information That Helps Us Care for You: No Feels Safe at Home: Yes Safety Concerns: Feels Safe At This Time Assistive Devices: Glasses and Hearing Aid - Bilateral Assistive Devices Comment: glasses used prn; will leave hearing aids DOS
[2024-04-27] MEDS ORDERED: MIDAZOLAM HCL 1 MG/ML 2ML VIAL ONE (12:37)
[2024-04-27] MEDS ORDERED: DEXAMETHASONE SOD INJ 4 MG/ML VIAL ONE (12:37)
[2024-04-27] MEDS ORDERED: LIDOCAINE 2% 2 ML VIAL/AMP(20MG/ML) INFIL ONE (12:37)
[2024-04-27] MEDS ORDERED: ONDANSETRON INJ 2 MG/ML 2 ML VIAL ONE (12:37)
[2024-04-27] MEDS ORDERED: PROPOFOL IV EMULSION 10 MG/ML 20 ML VIAL IV ONE (12:37)
[2024-04-27] MEDS ORDERED: fentaNYL citrate PF 100 MCG/2 ML VIAL ONE (12:37)
[2024-04-27] MEDS ORDERED: ROCURONIUM BROMIDE 10 MG/ML 5 ML VIAL IV ONE ×6 (12:41)
[2024-04-27 13:13] LABS: BUN Creatinine Ratio 11.6 (10-20); Calcium 9.5 mg/dl (8.6-10.3); Creatinine Clr Calc Pharmacy 60.5 ml/min; Potassium 4.2 mmol/L (3.5-5.1)
--- NOTE | 2024-04-27 13:32 | History & Physical Bridge Note ---
Date of Service April 27, 2024 History & Physical Bridge Note I have examined the patient, reviewed the History & Physical and in the interval since the performance of the History & Physical I have noted the following changes of clinical significance: no changes noted
[2024-04-27] MEDS: LACTATED RINGER'S 1,000 ML IV SCH ×2 (13:51→18:20)
[2024-04-27] MEDS: ceFAZolin 2000MG 2,000 MG/15 ML SYR IV SCH ×2 (14:07→22:00)
[2024-04-27] MEDS ORDERED: PHENYLEPHRINE 100MCG/ML 5ML SYR ONE ×2 (14:23→14:30)
[2024-04-27] MEDS ORDERED: ePHEDrine sulfate 50 MG/5 ML SYR ONE ×2 (14:30)
[2024-04-27] MEDS ORDERED: SUGAMMADEX SODIUM 200 MG/2 ML VIAL IV ONE (14:59)
[2024-04-27] MEDS: ceFAZolin 330 MG/ML 1 GM VIAL ONE (15:07)
[2024-04-27] MEDS: BUPIVACAINE/EPINEPHRINE 0.5% MPF 1:200,000 30 ML VIAL ONE (15:07)
[2024-04-27] MEDS: GELATIN SPONGE SZ 100 ONE (15:08)
[2024-04-27] MEDS: THROMBIN FOR SOLN 20000 UNIT KIT ONE (15:08)
[2024-04-27] MEDS: VISIPAQUE IV PRN (15:10)
--- NOTE | 2024-04-27 15:16 | Procedure Note ---
Angiogram Post Procedure Fluoroscopy Time (minutes): 2.2 Radiation (mGy): 26 Contrast: 9 Post Operative Report Pre & Post Diagnosis Operation Date: 04/27/24 13:40 Pre-Op Diagnosis: Right Internal Carotid Artery Stenosis Post-Op Diagnosis: Right Internal Carotid Artery Stenosis I identified the patient and participated in the time-out.: Yes Procedure Operation Date: 04/27/24 13:40 Actual Procedures p Right Transcarotid Artery Revascularization(Right), Ultrasound localization of left common femoral vein- Nakul Bailey MD Surgeon Nakul Bailey MD [employer] Yumi,PAC Estimated Blood Loss 10 Findings Consistent with Post-Op Diagnosis Specimens none Anesthesia Type General Complications none Disposition Accompanied Patient To Recovery: No Disposition: Recovery Room Indications This is a 73-year-old male who came in with a left-sided TIA which resolved. He was found to have a significant narrowing of his right internal carotid artery. Intervention was recommended. He elected to go ahead with TCAR versus endarterectomy. I have discussed the risks options and benefits of the procedure with the patient. The patient understands the risks options and benefits and agrees to the procedure. Description of Procedure The patient was taken to the operating room and placed in supine position. After general anesthesia was accomplished the groins and right side of the neck and chest were prepped and draped in a sterile manner. Timeout was performed and the patient was identified. A transverse incision was made just above the clavicle between the heads of the sternocleidomastoid. This is carried down to where the common carotid artery was identified. It was isolated. It was slung with umbilical tape. Next the U stitch was placed in the common carotid artery with a 5-0 Prolene suture. Patient was given 8000 heparin at that time. Ultrasound was then used to localize the left common femoral vein. The vein was patent and compressed easily. Under ultrasound guidance the left common femoral vein was punctured and the venous sheath was inserted. This was aspirated and flushed with heparinized saline. ACT at that time was 275. Using micropuncture technique the common carotid artery was punctured. The micro sheath was inserted to 3 cm. Injection was then done showing the bifurcation. There was a significant lesion seen at the origin of the internal carotid artery on the right side. We then inserted the J-wire left and short of the lesion. The micro sheath was removed and the TCAR sheath was inserted. Once it was in place and held against the artery it was sutured to the chest wall and the incision edge. We then flushed the tubing appropriately. The venous return to was clamped onto the TCAR sheath. It was flushed through and then attached to the venous inflow sheath in the left groin. Sheath was checked for flow. The saline cleared nicely. The common carotid artery was then clamped. Flow reversal was instituted.The flow reversal was again checked for flow and found to have good flow after clamping. An arteriogram was performed to locate the bifurcation of the carotid. We inserted a 5.5 x 35 balloon backloaded on the wire. The wire was passed through the lesion into the petrous portion of the internal carotid. The 5.5 balloon was then advanced to the lesion. Lesion was then predilated with a 5.5 mm balloon. Balloon was removed. We then inserted the 9/7 x 40 stent. This was deployed across the lesion without difficulty. The catheter was removed. Completion angiogram was done at that time which showed a widely patent carotid stent. The wire was removed. At that point the common carotid artery was unclamped. The venous return tubing was clamped and removed from the TCAR sheath. The blood was allowed to flow back into the venous system. Once this was completed the sheath was pulled from the groin and pressure was applied. The TCAR sheath was then removed and the 5-0 Prolene suture securely tied. The patient was given 25 mg of protamine. Hemostasis was noted of the puncture site. An ACT was then drawn. ACT was 147 post protamine. Once this was completed the sheath was pulled from the groin and pressure was applied. The neck wound was irrigated with saline solution. Adequate hemostasis was obtained of the wound. Once this was noted the wound was closed in usual fashion using a 3-0 Vicryl suture for the subcutaneous layer and a 4-0 subcuticular Vicryl suture for the skin edges. Dermabond was used for dressing. The patient left the operation room in satisfactory condition and tolerated the procedure well. All needle and sponge counts were correct at the end of the procedure. Luh Wright Pac assisted due to lack of resident availability and was necessary for positioning, draping, retraction, wound closure deep layers, subcutaneous tissue, and skin closure and was necessary for assisting with the case. I attest to the content of the Intraoperative Record and any orders documented therein. Any exceptions are noted below.
[2024-04-27] MEDS ORDERED: METOPROLOL TARTRATE 1 MG/ML VIAL IV ONE (15:20)
[2024-04-27] MEDS ORDERED: oxyCODONE/ACETAMINOPHEN 5mg/325mg TAB PO PRN (17:27)
[2024-04-27] MEDS ORDERED: PHENYLEPHRINE/NSS 25 MG/250 ML BAG IV PRN (17:27)
[2024-04-27] MEDS ORDERED: STAT IV Infusion **Titration per Protocol STA (17:27)
--- NOTE | 2024-04-27 19:15 | Anesthesiology Progress Note ---
Date of Service April 27, 2024 Anesthesia Post Procedure Vital Signs Vital Signs: Temp Pulse Pulse Pulse Resp BP BP 04/27/24 17:30 53 L 17 04/27/24 17:03 56 L 13 04/27/24 16:45 55 L 15 04/27/24 16:20 36.5 C 63 12 111/66 116/52 L 04/27/24 16:10 64 15 115/67 127/56 L 04/27/24 16:00 60 16 113/66 122/56 L 04/27/24 15:50 75 17 108/73 128/60 04/27/24 15:40 75 19 108/68 135/62 04/27/24 15:31 36 C L 78 14 133/70 128/55 L 04/27/24 12:59 36.8 C 51 L 20 173/85 H Pulse Ox O2 Del Method 04/27/24 17:30 97 04/27/24 17:03 98 04/27/24 16:45 97 04/27/24 16:20 97 Room Air 04/27/24 16:10 93 Room Air 04/27/24 16:00 98 Room Air 04/27/24 15:50 98 Room Air 04/27/24 15:40 98 Room Air 04/27/24 15:31 99 Room Air 04/27/24 12:59 99 Room Air Transfer of Care Handoff Completed per policy Notes Mental Status: alert / awake / arousable and participated in evaluation Patient Amnestic to Procedure: Yes Nausea / Vomiting: adequately controlled Pain: adequately controlled Airway Patency, RR, SpO2: stable & adequate BP & HR: stable & adequate Hydration State: stable & adequate Anesthetic Complications: no major complications apparent and Pt Satisfied with anesthetic care
--- NOTE | 2024-04-27 19:43 | Critical Care Consultation ---
Date of Consultation April 27, 2024 Assessment & Plan (1) Carotid stenosis, bilateral: Status post right TCAR per vascular surgery, admitted to ICU for postop observation overnight and further management - No issues at this time. Hemodynamically stable. Continue to monitor - Continue ASA, Plavix - Further management per vascular surgery (2) Hypercholesterolemia: Continue statin (3) Brain TIA: No symptoms since a week and a half ago. Patient did experience left upper extremity weakness/numbness at that time. Status post right TCAR for SHELLI. Continue ASA, Plavix History of Present Illness Attending Physician: Nakul Bailey MD History of Present Illness Patient is a 73-year-old male with past medical history of HLD, TIA, and carotid artery stenosis. Approximately a week and a half ago patient developed numbness to the left upper extremity, and was diagnosed with TIA. He was found to have bilateral carotid artery stenosis, with symptomatic right SHELLI. He was scheduled for right TCAR for which he presents to the ICU postop this afternoon. On arrival to the ICU the patient is alert and oriented, without acute distress. He is hemodynamically stable and maintaining oxygen saturations on room air. He denies dizziness, numbness or tingling, syncope, cough or congestion, shortness of breath, chest pain, abdominal pain, nausea or vomiting. Patient does report episode of blurred vision which is now resolved, which lasted a few seconds. He does report a mild headache as well. He also reports sore throat with swallowing. Patient to remain in ICU for further management and monitoring overnight post procedure. Allergies Allergy/AdvReac Type Severity Reaction Status Date / Time No Known Allergies Allergy Verified 04/27/24 12:57 Home Medications Medication Instructions Recorded Confirmed Type atorvastatin 20 mg tablet 20 mg PO QAM 04/17/24 04/27/24 History aspirin 81 mg tablet,delayed 81 mg PO QAM #30 tabs 04/18/24 04/27/24 Rx release clopidogrel 75 mg tablet 75 mg PO QAM 30 days #30 tabs 04/18/24 04/27/24 Rx Pharmacist Discharge Consult 1 ea Not Applicable UD PRN ud 04/20/24 History [Pharmacist Discharge Med Rec Consult] Patient History Medical History Carotid stenosis, bilateral CKD (chronic kidney disease), stage II Per [facility] records History of gastric ulcer 2006 Per [facility] records Hypercholesterolemia Stroke 04/17/24, no residual effects Surgical History History of esophagogastroduodenoscopy (EGD) Hx of bilateral cataract extraction Hx of colonoscopy Hx of tonsillectomy Social History Smoking Status: Former smoker Tobacco Type: Cigarettes Smoking End Date: 30 years ago; Second Hand Exposure: Yes (hx); Do You Dip or Chew Tobacco: No (quit age 54; advised); Tobacco Cessation Education Requested by Patient: No Hx Alcohol Use: Yes (quit 02/2024) Hx Substance Use: No Preferred Language: [place] Communication Ability: Effective Timekeeper Supervisor Required: No Beliefs That Will Affect Care: None Current Living Situation: Spouse Other Information That Helps Us Care for You: No Feels Safe at Home: Yes Safety Concerns: Feels Safe At This Time Assistive Devices: Glasses and Hearing Aid - Bilateral Assistive Devices Comment: glasses used prn; will leave hearing aids DOS Review of Systems Review of Systems: All systems reviewed & are unremarkable except as noted in HPI & below Physical Exam Constitutional: cooperative and comfortable; no acute distress Eyes: PERRL, conjunctivae normal, anicteric sclerae ENMT: external ear and nose normal, oropharynx normal Neck: trachea midline, no thyromegaly Respiratory: normal respiratory effort, lungs clear to auscultation Cardiovascular: RRR, no murmur, no edema Gastrointestinal (Abdomen): normal bowel sounds, soft, nontender, no hepatosplenomegaly Musculoskeletal: no cyanosis or clubbing, extremities motor strength 5/5 Skin: no rashes, warm and dry Neurologic: PERRL, EOMI, accommodation nl, no face palsy, no dysarthria Psychiatric: A+Ox3, euthymic affect Results & Data Results & Data Vital Signs (Past 12 Hours) Vital Signs Temp Pulse Pulse Pulse Resp BP BP 04/27/24 17:30 53 L 17 04/27/24 17:03 56 L 13 04/27/24 16:45 55 L 15 04/27/24 16:20 36.5 C 63 12 111/66 116/52 L 04/27/24 16:10 64 15 115/67 127/56 L 04/27/24 16:00 60 16 113/66 122/56 L 04/27/24 15:50 75 17 108/73 128/60 04/27/24 15:40 75 19 108/68 135/62 04/27/24 15:31 36 C L 78 14 133/70 128/55 L 04/27/24 12:59 36.8 C 51 L 20 173/85 H Pulse Ox O2 Del Method 04/27/24 17:30 97 04/27/24 17:03 98 04/27/24 16:45 97 04/27/24 16:20 97 Room Air 04/27/24 16:10 93 Room Air 04/27/24 16:00 98 Room Air 04/27/24 15:50 98 Room Air 04/27/24 15:40 98 Room Air 04/27/24 15:31 99 Room Air 04/27/24 12:59 99 Room Air Coding Level of Care Code 94905 IN/OBS CONSULT LVL 2,35M Diagnoses Carotid stenosis, bilateral I65.23 Hypercholesterolemia E78.00 Brain TIA G45.9 Time Spent (min) 37
[2024-04-27] MEDS: ACETAMINOPHEN 325 MG TAB PO PRN (20:01)
[2024-04-28 04:03] VITALS: TEMP 97.9
--- NOTE | 2024-04-28 08:10 | Critical Care Progress Note ---
Date of Service April 28, 2024 Assessment & Plan (1) Carotid stenosis, bilateral: (2) Hypercholesterolemia: Plan: Continue statin Plan -- Carotid stenosis Status post right TCAR per vascular surgery on 04/27/2024 - No issues at this time. Hemodynamically stable. Continue to monitor - Continue ASA, Plavix - Further management per vascular surgery -- Dyslipidemia Continue with atorvastatin -- TIA No symptoms since a week and a half ago. Patient did experience left upper extremity weakness/numbness at that time. Status post right TCAR for SHELLI. Continue ASA, Plavix --Prophylaxis VTE: IPC GI: None Lines: Right radial Diet: Cardiac Plan: In/out: Positive 440, urine output 1610 Patient hemodynamically stable Recommend discontinuing the arterial line Disposition as per vascular surgery Please note the above document was generated using voice recognition software. It may contain grammatical, syntax or spelling errors.Any formal questions or concerns about the content, text or information contained within the body of this dictation should be directly addressed to the provider for clarification. Admission and Anticipated Discharge Date Admission Date: April 27, 2024 Subjective Patient seen and examined at bedside. No acute distress, no adverse events overnight Complains of some sore throat which is still significantly improved compared to yesterday Tolerated diet Denies any headache, no nausea, no vomiting No blurry vision, no weakness Review of Systems 2 Review of Systems: All systems reviewed & are unremarkable except as noted in Subjective Physical Exam 2 Physical Exam: Constitutional: No acute distress HEENT: EOMI, PERRLA, right sided incision site clean Respiratory system: Good air entry bilaterally, no wheeze, no rhonchi, no crackles CVS: S1-S2 positive, no murmurs or gallops Abdomen: Soft, nontender, nondistended, positive bowel sounds x4 Extremities: +2 pulses bilaterally radialis/ dorsalis pedis, no cyanosis, no edema Neuro: Awake alert oriented x3 Psych: Normal mood and affect G/U: No Springer Skin: no rashes, warm and dry Lymphatic: no cervical or axillary lymphadenopathy Results & Data Results & Data Vital Signs (Past 12 Hours) Vital Signs Temp Pulse Pulse Pulse Resp BP BP 04/28/24 06:03 49 L 15 121/71 04/28/24 06:00 36.6 C 47 L 47 L 15 121/71 04/28/24 05:45 47 L 15 04/28/24 05:03 47 L 13 04/28/24 05:00 57 L 57 L 18 126/70 04/28/24 04:48 46 L 13 04/28/24 04:12 46 L 15 04/28/24 03:57 36.6 C 47 L 47 L 17 126/70 04/28/24 03:57 46 L 145/67 H 04/28/24 03:45 46 L 14 04/28/24 03:00 55 L 21 04/28/24 03:00 48 L 48 L 13 04/28/24 02:39 46 L 15 04/28/24 02:00 36.5 C 44 L 14 132/70 04/28/24 02:00 49 L 49 L 14 132/70 04/28/24 01:06 44 L 15 04/28/24 01:00 36.5 C 52 L 52 L 18 04/28/24 00:30 53 L 15 04/28/24 00:00 36.5 C 49 L 49 L 17 115/69 04/28/24 00:00 49 L 137/66 04/28/24 00:00 65 04/27/24 23:00 51 L 145/71 H 04/27/24 23:00 36.4 C L 51 L 51 L 15 124/75 04/27/24 22:08 36.5 C 55 L 55 L 13 04/27/24 22:00 36.5 C 48 L 48 L 15 04/27/24 21:00 53 L 53 L 14 04/27/24 20:27 36.5 C 61 61 13 BP Pulse Ox O2 Del Method 04/28/24 06:03 94 Room Air 04/28/24 06:00 155/72 H 96 Room Air 04/28/24 05:45 92 Room Air 04/28/24 05:03 96 Room Air 04/28/24 05:00 141/66 H 97 Room Air 04/28/24 04:48 95 Room Air 04/28/24 04:12 95 Room Air 04/28/24 03:57 145/67 H 96 Room Air 04/28/24 03:57 04/28/24 03:45 96 Room Air 04/28/24 03:00 99 04/28/24 03:00 143/67 H 99 Room Air 04/28/24 02:39 94 Room Air 04/28/24 02:00 95 Room Air 04/28/24 02:00 139/66 93 Room Air 04/28/24 01:06 97 Room Air 04/28/24 01:00 141/64 H 97 Room Air 04/28/24 00:30 98 Room Air 04/28/24 00:00 143/71 H 97 Room Air 04/28/24 00:00 04/28/24 00:00 04/27/24 23:00 04/27/24 23:00 148/72 H 94 Room Air 04/27/24 22:08 155/70 H 98 Room Air 04/27/24 22:00 141/64 H 96 Room Air 04/27/24 21:00 154/73 H 97 Room Air 04/27/24 20:27 159/76 H 97 Room Air Laboratory Results 04/27/24 12:36 Coding Level of Care Code 60160 SUB INP/OBS CARE 07/16MIN Diagnoses Carotid stenosis, bilateral I65.23 Hypercholesterolemia E78.00
[2024-04-28] MEDS: CLOPIDOGREL BISULFATE 75 MG TAB PO SCH (09:04)
[2024-04-28] MEDS: ATORVASTATIN 20 MG TAB PO SCH (09:04)
[2024-04-28] MEDS: ASPIRIN 81 MG ECTAB PO SCH (09:04)
[2024-04-28 12:14] VITALS: O2SAT 95
[2024-04-28 13:13] VITALS: BP 115/65; RESP 15
--- NOTE | 2024-04-28 14:40 | Surgery Progress Note ---
Date of Service April 28, 2024 Assessment & Plan (1) Carotid stenosis, bilateral: Plan: Patient POD 1 from right tcar. No post op problems D\C today Admission and Anticipated Discharge Date Admission Date: April 27, 2024 Subjective Patient claims he had a sore throat post op but feels better now. Denies focal deficits. Physical Exam Constitutional: WD/WN, vitals as above Neck: trachea midline Respiratory: normal respiratory effort; no respiratory distress Cardiovascular: Rate/Rhythm: regular rate and regular rhythm Skin: + incision (dry and clean) Neurologic: CN's II-XI intact bilaterally and moves all extremities Psychiatric: A+Ox3, euthymic affect Results & Data Vital Signs (Past 12 Hours) Vital Signs Temp Pulse Pulse Pulse Resp BP BP 04/28/24 13:06 55 L 15 115/65 04/28/24 12:14 36.6 C 68 16 117/67 04/28/24 10:12 57 L 14 100/59 L 04/28/24 09:00 56 L 11 L 04/28/24 08:00 50 L 04/28/24 08:00 36.6 C 56 L 14 04/28/24 06:03 49 L 15 121/71 04/28/24 06:00 36.6 C 47 L 47 L 15 121/71 04/28/24 05:45 47 L 15 04/28/24 05:03 47 L 13 04/28/24 05:00 57 L 57 L 18 126/70 04/28/24 04:48 46 L 13 04/28/24 04:12 46 L 15 04/28/24 03:57 36.6 C 47 L 47 L 17 126/70 04/28/24 03:57 46 L 145/67 H 04/28/24 03:45 46 L 14 04/28/24 03:00 55 L 21 04/28/24 03:00 48 L 48 L 13 04/28/24 02:39 46 L 15 BP Pulse Ox O2 Del Method 04/28/24 13:06 95 Room Air 04/28/24 12:14 95 Room Air 04/28/24 10:12 94 04/28/24 09:00 98 04/28/24 08:00 04/28/24 08:00 128/78 95 Room Air 04/28/24 06:03 94 Room Air 04/28/24 06:00 155/72 H 96 Room Air 04/28/24 05:45 92 Room Air 04/28/24 05:03 96 Room Air 04/28/24 05:00 141/66 H 97 Room Air 04/28/24 04:48 95 Room Air 04/28/24 04:12 95 Room Air 04/28/24 03:57 145/67 H 96 Room Air 04/28/24 03:57 04/28/24 03:45 96 Room Air 04/28/24 03:00 99 04/28/24 03:00 143/67 H 99 Room Air 04/28/24 02:39 94 Room Air
[2024-04-28 15:18] VITALS: PULSE 47
--- NOTE | 2024-05-06 10:57 | Discharge Summary ---
Date of Service May 06, 2024 Admission HPI Per Admitting Provider April 18, 2024 Assessment & Plan (1) Carotid stenosis, bilateral: Pt admitted with R hemispheric TIA. Pt with bilateral carotid stenosis, however, R ICA is symptomatic. All sx currently resolved. Pt imaging reviewed by Dr Cummins, who also saw the pt today. Recommends pt undergo surgical intervention to R ICA stenosis. Options of R CEA vs TCAR were discussed at length with pt. Pt elects to proceed with R TCAR. Pt will need to remain on DAPT and statin medication to undergo surgery. Would also order TTE pre operatively. Office will call pt to make arrangements. OK for d/c home from vascular standpoint after echo. History of Present Illness Reason for Consultation: R ICA stenosis Attending Physician: Jessi Huang MD History of Present Illness 73 yo m with hx of hyperlipidemia admitted with R hemispheric TIA, seen in consultation today for R ICA stenosis. Pt states he was picking up sandwiches for dinner and noted his L arm was numb and weak when he was getting back in the car. Sx slowly improved over approx 30 min, almost gone by the time he arrived at [facility]. States woke up with L hand numbness for about 15 minutes a few months ago as well. Denies any other associated sx, including amaurosis, facial droop, dysarthria, aphasia, confusion, [place], dizziness, balance problems. Denies any hx of heart problems, but does state he was told he has a murmur in the past. CTA neck demonstrates R ICA stenosis of 70% with possible ulcerated plaque. L ICA with approx 70% stenosis as well. Allergies Allergy/AdvReac Type Severity Reaction Status Date / Time [id number] Allergy Unknown Uncoded 01/19/08 07:55 Home Medications Medication Instructions Recorded Confirmed Type atorvastatin 20 mg tablet 20 mg PO DAILY 04/17/24 04/17/24 History Patient History Social History Smoking Status: Never smoker Hx Alcohol Use: No Hx Substance Use: No Preferred Language: Setswana Communication Ability: Effective [employer] Department Manager Required: No Beliefs That Will Affect Care: None Current Living Situation: Spouse Other Information That Helps Us Care for You: No Feels Safe at Home: Yes Safety Concerns: Feels Safe At This Time Review of Systems Review of Systems: All systems reviewed & are unremarkable except as noted in HPI & below Physical Exam Constitutional: WD/WN, vitals as above healthy appearing, cooperative and comfortable; not in distress Neck: trachea midline Respiratory: normal respiratory effort, lungs clear to auscultation Cardiovascular: Rate/Rhythm: regular rate and regular rhythm Vessels: + carotid bruit, femoral pulses present, posterior tibial pulses present, dorsalis pedis pulses present and radial pulses present Extremities: normal capillary refill; no edema Gastrointestinal (Abdomen): Inspection/Auscultation: abdomen normal to inspection and normal bowel sounds Percussion/Palpation: abdomen soft; abdomen nontender Musculoskeletal: no cyanosis or clubbing, extremities motor strength 5/5 Skin: no rashes, warm and dry Neurologic: moves all extremities and awake; no focal motor deficits and not confused Psychiatric: A+Ox3, euthymic affect Results & Data Vital Signs (Past 12 Hours) Vital Signs Temp Pulse Pulse Resp BP Pulse Ox O2 Del Method 04/18/24 07:45 36.5 C 53 L 18 129/73 97 Room Air 04/18/24 03:32 36.6 C 52 L 16 116/73 96 Room Air 04/18/24 00:11 36.5 C 77 16 117/68 95 Room Air 04/17/24 21:47 54 L Signed By: <Electronically signed by Luh Wright PA-C> 04/18/2443 <Electronically signed by Nakul Cummins MD> 04/18/2444 Created: 04/18/24 0929 The status of this report is Signed. Draft = Not yet reviewed or approved by Medical Physician. Signed = Reviewed and approved by Medical Physician. Admission Exam Per Admitting Provider Constitutional: WD/WN, vitals as above healthy appearing, cooperative and comfortable; not in distress Neck: trachea midline Respiratory: normal respiratory effort, lungs clear to auscultation Cardiovascular: Rate/Rhythm: regular rate and regular rhythm Vessels: + carotid bruit, femoral pulses present, posterior tibial pulses present, dorsalis pedis pulses present and radial pulses present Extremities: normal capillary refill; no edema Gastrointestinal (Abdomen): Inspection/Auscultation: abdomen normal to inspection and normal bowel sounds Percussion/Palpation: abdomen soft; abdomen nontender Musculoskeletal: no cyanosis or clubbing, extremities motor strength 5/5 Skin: no rashes, warm and dry Neurologic: moves all extremities and awake; no focal motor deficits and not confused Psychiatric: A+Ox3, euthymic affect Principal Diagnosis 1. s/p R TCAR 2. 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 No post op problems D\C today Total Time Total Time Spent Total Time Spent (In Minutes): 0 Discharge Plan Discharge Items Patient Disposition: Home - Self-Care Reason For Visit: Right Internal Carotid Artery Stenosis Discharge Diagnosis: Right internal carotid artery stenosis Activity: Per Instructions section Non-emergency contact: Surgeon Call non-emergency contact if: your temperature is above 101.5, your wound has increased redness, your wound has increased drainage and your wound pain has increased Follow-up/Referrals: Dannielle Summers [Primary Care Provider] - Diet: Heart Healthy Addtl Attending Provider Instructions: SPECIAL CARE INSTRUCTIONS: Diet: * You may return to previous diet. Medications: * Continue to take Aspirin, Plavix, and statin as directed. Incision Care: * You may shower, but do not rub incision. You may let the warm soapy water run over it. Be sure to dry the incision well after bathing. * Do not shave directly over the incision until it is healed. * DO NOT IMMERSE THE INCISION IN A TUB/POOL/etc. UNTIL HEALED. Restrictions: * Do not drive for at least one week or if you are still taking any narcotic pain medication. * Do not lift anything heavier than a gallon of milk for one week after going home. Possible Complications: * Numbness - It is normal to have some numbness around the incision. Numbness can extend beyond the incision to areas of the neck, ear and face. The numbness is due to bruising of nerves during the surgery and will gradually improve over a period of months. * Hoarseness/Difficulty Speaking and Swallowing - The bruising of nerves in the neck can also cause a hoarse voice, difficulty speaking or swallowing. This may improve over time, HOWEVER, if it continues for more than a few days please contact our office ([phone]). * Excessive Swelling - There will be some swelling immediately after surgery which usually resolves within one week. If you notice that the swelling is getting worse, notify your surgeon ([phone]). * Drainage/Bleeding - If there is any drainage or bleeding, it should be a very small amount (less than a teaspoon per day). If you have excessive bleeding or drainage from the incision, call your surgeon ([phone]) right away. ACTIVATION OF EMERGENCY MEDICAL SYSTEM: Call 911, immediately, if you experience any of the following: Warning Signs and Symptoms of Stroke: * Sudden numbness or weakness of the face, arm or leg, especially on one side of the body * Sudden confusion, trouble speaking or understanding * Sudden trouble seeing in one or both eyes * Sudden trouble walking, dizziness, loss of balance or coordination * Sudden severe headache with no cause Do not delay calling 911 if you experience any warning signs or symptoms of a stroke. Delay in seeking medical attention may affect what treatments can be given to you. Risk Factors for Stroke: You can reduce your chances of stroke by working with your medical provider to adopt a healthy lifestyle. Some specific ways to lower your chance of stroke are: * If you are a smoker, now is the time to stop smoking cigarettes * If you are diabetic, improve the control of your blood sugars * Avoid excessive amounts of alcohol * Control high blood pressure * Lose weight if you are overweight * Be sure to lead an active lifestyle * Eat a healthy diet low in salt, cholesterol and fat You should know about other risk factors for stroke that you are unable to control. These include: * Age 55 years or older * Male gender * Certain racial groups: , or / * Family History of Stroke, Mini stroke or Heart Attack * Sickle Cell Disease You will be receiving a call from the Vascular Surgery Nurse after you are discharged. FOLLOW UP VISIT: It is important for you to keep your follow up appointments with your medical provider. Keep any scheduled doctor appointments. Pending Studies at Discharge: No Stand-Alone Forms: [facility], Smoking Cessation Medications and DC Order Prescriptions: New tramadol 50 mg tablet 50 mg PO Q8H PRN (Reason: pain) Qty: 7 0RF Continued atorvastatin 20 mg tablet 20 mg PO QAM clopidogrel 75 mg Tablet 75 mg PO QAM 30 Days Qty: 30 2RF aspirin 81 mg Tablet,Delayed Release (Dr/Ec) 81 mg PO QAM Qty: 30 0RF Pharmacist Discharge Consult [Pharmacist Discharge Med Rec Consult] 1 ea Not Applicable UD PRN (Reason: ud) Discharge Orders: Discharge Order (Routine); Ordered 04/28/24 Ordered By: Nakul Cummins Admission Data Admit Date/Time: 04/27/24 13:32 Attending Provider: Nakul Cummins Admit Provider: Nakul Cummins Primary Care Provider: Dannielle Summers Other Providers: Lawrence Doyle Muqueet Other Interventions: Discharge Summary Assessment (RN) Last Done: 04/28/24 15:16
== END 2024-04-28 15:45 | disposition home or self-care (01) | DRG 36 ==
LOC: ASU 12:09 → 1E 13:32
PROC: EV.TCAR (2024-04-27 13:40)